=== PATIENT | male | born 1965 | race Caucasian/White ===

== ENCOUNTER 2018-05-16 08:10 | Inpatient (IN) ==
[2018-05-16 08:59] LABS: Basophils # (auto) 0.02 K/uL (0-0.2); Basophils % (auto) 0.2 %; Eosinophils # (auto) 0.07 K/uL (0-0.5); Eosinophils % (auto) 0.7 %; Hematocrit (blood only) 47.5 % (42-52); Hemoglobin 16.3 g/dL (14.0-18.0); Immature Granulocytes # (auto) 0.02 K/uL (0.00-0.02); Immature Granulocytes % (auto) 0.2 %; Lymphocytes # (auto) 1.51 K/uL (1.2-3.4); Mean Corpuscular Hgb Conc 34.3 g/dL (32-36); Mean Corpuscular Volume 84.7 fL (80-100); Mean Platelet Volume 10.6 fL (7.4-10.4); Monocytes # (auto) 0.48 K/uL (0.11-0.59); Monocytes % (auto) 5.1 %; Neutrophils # (auto) 7.32 K/uL (1.4-6.5); Neutrophils % (auto) 77.8 %; Platelet Count 217 K/uL (130-400); RDW Coefficient of Variation 12.8 % (11.5-14.5); RDW Standard Deviation 39.1 fL (36.4-46.3); Red Blood Count 5.61 M/uL (4.7-6.1); White Blood Count 9.42 K/uL (4.8-10.8)
[2018-05-16 09:00] LABS: Appearance Urine Clear (Clear); Bacteria Urine Automated Negative (Negative); Bilirubin Urine Negative (Negative); Color Urine Yellow; Glucose Urine UA 1+ (Negative); Ketones Urine 1+ (Negative); Leukocyte Esterase Urine Negative (Negative); Nitrite Urine Negative (Negative); Protein Urine Trace (Negative); Specific Gravity Urine 1.015 (1.000-1.030); Urobilinogen Urine Negative (Negative); pH Urine 5.5 (4.5-7.5)
--- NOTE | 2018-05-16 09:12 | Emergency Department Note ---
Entered by Constanza Sanabria acting as a scribe for Jakub Kaplan MD History of Present Illness General Chief complaint: Anxiety Stated complaint: ANXIETY Time Seen by Provider: 05/16/18 08:20 Source: patient History of Present Illness Provider complaint: mental health evalution Onset (ago): day(s) (today) Location: head Pain Consistency: + constant Maximum Pain Intensity: 0 Quality: + other (mental health evaluation) Associated symptoms: + denies other symptoms (denies abdominal pain); no chest pain and no shortness of breath The patient is a 53 year old male who presents to the Emergency Room with complaints of a mental health evaluation today. The patient reports a history of anxiety and states that he is on Paxil. He states that he was on 20 mg but started taking 40 mg on his own. He reports that he has been hospitalized 4 times for anxiety. He states that he also has chronic depression. The patient states that his anxiety has worsened over the last 2 weeks. The patient reports that he has not had energy and has had weight loss as he has a loss of appetite. The patient states that nothing in particular triggered his anxiety. 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 The patient states that he does not smoke and denies alcohol or drug use. He reports that he has thought about shooting himself and states that he has guns in his home as he hunts. He states that he has not tried to hurt himself and states that thinking about his family prevents him from hurting himself. The patient denies having thoughts of hurting other people. The patient reports having left back pain but denies having chest pain, shortness of breath, or abdominal pain. He states that he is diabetic and states that his sugar was 201 this morning. He states that he is on Metformin but states that he has not been taking it as he has not been eating. The patient also reports a history of hypertension and hyperlipidemia. Home Medications Home Medications Medication Instructions Recorded Confirmed Type aspirin [Aspirin Low Dose] 81 mg PO HS 05/16/18 05/16/18 History losartan-hydrochlorothiazide 0.5 tab PO HS 05/16/18 05/16/18 History metformin 500 mg PO BID 05/16/18 05/16/18 History paroxetine HCl 40 mg PO HS 05/16/18 05/16/18 History Allergies Allergy/AdvReac Type Severity Reaction Status Date / Time mildew Allergy Uncoded 05/16/18 14:23 Past Med/Surg History Medical History Anxiety (Chronic) Depression (Chronic) Diabetes (Chronic) HLD (hyperlipidemia) (Chronic) HTN (hypertension) (Chronic) Family History Other No pertinent family history Social History Feels Safe at Home: Yes Smoking Status: Never smoker Preferred Language: Latvian Communication Ability: Effective Suede Brusher Required: No Review of Systems See HPI for pertinent positives & negatives. and A total of 10 systems reviewed and were otherwise negative Physical Exam Vital Signs Vital Signs - 24 hr 05/16/18 08:12 05/16/18 10:10 05/16/18 11:26 Temperature 36.3 C L Temperature Source Oral Sepsis Recent Fever Within 48 Hours No Sepsis New/Unexplained Change in Mental Status No Sepsis Action Taken by Nursing No Action Required Pulse Rate 98 H 88 Pulse Rate [Radial] 90 Pulse Rhythm [Radial] Pulse Strength [Radial] Respiratory Rate 20 16 18 Respiratory Effort / Characteristics Non-Labored Spontaneous Respiratory Depth Normal Respiratory Pattern Regular Blood Pressure 165/110 H 148/87 H Blood Pressure [Left Arm] 155/98 H Blood Pressure Mean 128 Blood Pressure Mean [Left Arm] 117 Blood Pressure Position [Left Arm] Pulse Oximetry 97 98 98 Oxygen Delivery Method Room Air Room Air 05/16/18 12:56 05/16/18 13:14 Temperature 36.4 C L Temperature Source Oral Sepsis Recent Fever Within 48 Hours Sepsis New/Unexplained Change in Mental Status Sepsis Action Taken by Nursing Pulse Rate Pulse Rate [Radial] 99 H Pulse Rhythm [Radial] Regular Pulse Strength [Radial] Normal Respiratory Rate 18 Respiratory Effort / Characteristics Non-Labored Non-Labored Respiratory Depth Normal Normal Respiratory Pattern Regular Regular Blood Pressure Blood Pressure [Left Arm] 141/98 H Blood Pressure Mean Blood Pressure Mean [Left Arm] 112 Blood Pressure Position [Left Arm] Sitting Pulse Oximetry Oxygen Delivery Method General: Non-ill appearing middle aged male in no acute distress. HEENT: Normal cephalic atraumatic. Pupils are equal round and reactive to light. Extraocular movements are intact. Oropharynx is pink with moist mucous membranes. No swelling of the mouth lips or tongue. Neck: Supple with a midline trachea. No meningeal signs or stiffness, no JVD or bruits. No Stridor. Chest: Clear to auscultation bilaterally. No wheezes or rhonchi. No increased work of breathing. Heart: regular rate and rhythm. Abdomen: Soft nontender, nondistended without rebound guarding or rigidity. Extremities: No cyanosis clubbing or edema. No calf tenderness or assymetry Spine/Back. Non tender to palpation. No CVA tenderness Skin: Good turgor without rashes. Neurologic exam: Cranial nerves two through 12 are intact. Motor and sensation are intact and symmetrical throughout. Psych: Normal thought process. Has thoughts of hurting himself but denies any thoughts at present. Denies homicidal ideation. Course 0823: Past medical records reviewed. The patient was evaluated in room A5, and a complete history and physical examination were performed. 1045: The patient was admitted to [facility]. Administered Medications Insulin Aspart (Novolog Flexpen) 0 units SC [facility]; Protocol Stop: 06/15/18 11:29 Last Admin: 05/16/18 12:47 Dose: Not Given Admin: 05/16/18 12:46 Dose: Not Given Discontinued Medications Lorazepam (Ativan) 1 mg SL NOW STA Stop: 05/16/18 09:32 Last Admin: 05/16/18 09:40 Dose: 1 mg Metformin HCl (Glucophage) 500 mg PO ONE STA Stop: 05/16/18 10:55 Last Admin: 05/16/18 11:11 Dose: 500 mg Potassium Chloride (Klor-Con M20) 40 meq PO NOW STA Stop: 05/16/18 09:33 Last Admin: 05/16/18 09:40 Dose: 40 meq Medical Decision Making Differential Diagnosis The patient is a 53 year old male who presents to the ED with a mental health evaluation. Differential diagnosis includes depression, anxiety, SI, toxicologic , electrolyte or metabolic abnormality. Medical Records Attestation: I reviewed the patient's medical records. Home Medications Current Medication List: was personally reviewed by me Laboratory Data Attestation: I reviewed the patient's lab results. Result diagrams: 05/16/18 08:49 05/16/18 08:49 Lab Results 05/16/18 05/16/18 05/16/18 Range/Units 08:20 08:20 08:49 WBC 9.42 (4.8-10.8) K/uL RBC 5.61 (4.7-6.1) M/uL Hgb 16.3 (14.0-18.0) g/dL Hct 47.5 (42-52) % MCV 84.7 (80-100) fL MCH 29.1 (25-34) pg MCHC 34.3 (32-36) g/dL RDW Std Deviation 39.1 (36.4-46.3) fL RDW Coeff of Conchita 12.8 (11.5-14.5) % Plt Count 217 (130-400) K/uL MPV 10.6 H (7.4-10.4) fL Immature Gran % (Auto) 0.2 % Neut % (Auto) 77.8 % Lymph % (Auto) 16.0 % Edgar % (Auto) 5.1 % Eos % (Auto) 0.7 % Baso % (Auto) 0.2 % Immature Gran # (Auto) 0.02 (0.00-0.02) K/uL Neut # (Auto) 7.32 H (1.4-6.5) K/uL Lymph # (Auto) 1.51 (1.2-3.4) K/uL Edgar # (Auto) 0.48 (0.11-0.59) K/uL Eos # (Auto) 0.07 (0-0.5) K/uL Baso # (Auto) 0.02 (0-0.2) K/uL Sodium (136-145) mmol/L Potassium (3.5-5.1) mmol/L Chloride (98-107) mmol/L Carbon Dioxide (21-32) mmol/L Anion Gap (3-11) BUN (7-18) mg/dl Creatinine (0.6-1.4) mg/dl Est Cr Clr Drug Dosing ml/min Est GFR ( Amer) Est GFR (Non-Af Amer) BUN/Creatinine Ratio (10-20) Glucose (70-99) mg/dl POC Glucose (70-99) Calcium (8.5-10.1) mg/dl Total Bilirubin (0.2-1) mg/dl AST (15-37) U/L ALT (12-78) U/L Alkaline Phosphatase (45-117) U/L Total Protein (6.4-8.2) gm/dl Albumin (3.4-5.0) gm/dl Globulin (2.5-4.0) gm/dl Albumin/Globulin Ratio (0.9-2) TSH (0.300-4.500) uIu/ml Urine Color Yellow Urine Appearance Clear (Clear) Urine pH 5.5 (4.5-7.5) Ur Specific [place] 1.015 (1.000-1.030) Urine Protein Trace H (Negative) Urine Glucose (UA) 1+ H (Negative) Urine Ketones 1+ H (Negative) Urine Blood Negative (Negative) Urine Nitrite Negative (Negative) Urine Bilirubin Negative (Negative) Urine Urobilinogen Negative (Negative) Ur Leukocyte Esterase Negative (Negative) Urine WBC (Auto) 1-5 (0-5) /hpf Urine RBC (Auto) 0-4 (0-4) /hpf U Hyaline Cast (Auto) 5-10 H (0-5) /lpf U Epithel Cells (Auto) 5-10 H (0-5) /lpf Urine Bacteria (Auto) Negative (Negative) Salicylates (2.8-20) mg/dl Urine Opiates Screen Neg (Neg) Ur Methadone, Qual Neg (Neg) Acetaminophen (10-30) ug/ml Urine Barbiturates Neg (Neg) Ur Phencyclidine (PCP) Neg (Neg) U Amphetamin/Meth Scrn Neg (Neg) MDMA (Ecstasy) Screen Neg (Neg) U Benzodiazepines Scrn Neg (Neg) Ur Cocaine Metabolite Neg (Neg) U Marijuana (THC) Screen Neg (Neg) Ethyl Alcohol mg/dL (0-3) mg/dl 05/16/18 05/16/18 05/16/18 Range/Units 08:49 08:49 08:49 WBC (4.8-10.8) K/uL RBC (4.7-6.1) M/uL Hgb (14.0-18.0) g/dL Hct (42-52) % MCV (80-100) fL MCH (25-34) pg MCHC (32-36) g/dL RDW Std Deviation (36.4-46.3) fL RDW Coeff of Conchita (11.5-14.5) % Plt Count (130-400) K/uL MPV (7.4-10.4) fL Immature Gran % (Auto) % Neut % (Auto) % Lymph % (Auto) % Edgar % (Auto) % Eos % (Auto) % Baso % (Auto) % Immature Gran # (Auto) (0.00-0.02) K/uL Neut # (Auto) (1.4-6.5) K/uL Lymph # (Auto) (1.2-3.4) K/uL Edgar # (Auto) (0.11-0.59) K/uL Eos # (Auto) (0-0.5) K/uL Baso # (Auto) (0-0.2) K/uL Sodium 134 L (136-145) mmol/L Potassium 3.3 L (3.5-5.1) mmol/L Chloride 98 (98-107) mmol/L Carbon Dioxide 28 (21-32) mmol/L Anion Gap 8.0 (3-11) BUN 8 (7-18) mg/dl Creatinine 1.05 (0.6-1.4) mg/dl Est Cr Clr Drug Dosing 108.2 ml/min Est GFR ( Amer) 92.2 Est GFR (Non-Af Amer) 79.5 BUN/Creatinine Ratio 7.5 L (10-20) Glucose 226 H (70-99) mg/dl POC Glucose (70-99) Calcium 8.7 (8.5-10.1) mg/dl Total Bilirubin 0.7 (0.2-1) mg/dl AST 30 (15-37) U/L ALT 51 (12-78) U/L Alkaline Phosphatase 82 (45-117) U/L Total Protein 7.9 (6.4-8.2) gm/dl Albumin 3.6 (3.4-5.0) gm/dl Globulin 4.3 H (2.5-4.0) gm/dl Albumin/Globulin Ratio 0.8 L (0.9-2) TSH 0.920 (0.300-4.500) uIu/ml Urine Color Urine Appearance (Clear) Urine pH (4.5-7.5) Ur Specific [place] (1.000-1.030) Urine Protein (Negative) Urine Glucose (UA) (Negative) Urine Ketones (Negative) Urine Blood (Negative) Urine Nitrite (Negative) Urine Bilirubin (Negative) Urine Urobilinogen (Negative) Ur Leukocyte Esterase (Negative) Urine WBC (Auto) (0-5) /hpf Urine RBC (Auto) (0-4) /hpf U Hyaline Cast (Auto) (0-5) /lpf U Epithel Cells (Auto) (0-5) /lpf Urine Bacteria (Auto) (Negative) Salicylates < 1.7 L (2.8-20) mg/dl Urine Opiates Screen (Neg) Ur Methadone, Qual (Neg) Acetaminophen < 2 L (10-30) ug/ml Urine Barbiturates (Neg) Ur Phencyclidine (PCP) (Neg) U Amphetamin/Meth Scrn (Neg) MDMA (Ecstasy) Screen (Neg) U Benzodiazepines Scrn (Neg) Ur Cocaine Metabolite (Neg) U Marijuana (THC) Screen (Neg) Ethyl Alcohol mg/dL < 3.0 (0-3) mg/dl 05/16/18 Range/Units 14:49 WBC (4.8-10.8) K/uL RBC (4.7-6.1) M/uL Hgb (14.0-18.0) g/dL Hct (42-52) % MCV (80-100) fL MCH (25-34) pg MCHC (32-36) g/dL RDW Std Deviation (36.4-46.3) fL RDW Coeff of Conchita (11.5-14.5) % Plt Count (130-400) K/uL MPV (7.4-10.4) fL Immature Gran % (Auto) % Neut % (Auto) % Lymph % (Auto) % Edgar % (Auto) % Eos % (Auto) % Baso % (Auto) % Immature Gran # (Auto) (0.00-0.02) K/uL Neut # (Auto) (1.4-6.5) K/uL Lymph # (Auto) (1.2-3.4) K/uL Edgar # (Auto) (0.11-0.59) K/uL Eos # (Auto) (0-0.5) K/uL Baso # (Auto) (0-0.2) K/uL Sodium (136-145) mmol/L Potassium (3.5-5.1) mmol/L Chloride (98-107) mmol/L Carbon Dioxide (21-32) mmol/L Anion Gap (3-11) BUN (7-18) mg/dl Creatinine (0.6-1.4) mg/dl Est Cr Clr Drug Dosing ml/min Est GFR ( Amer) Est GFR (Non-Af Amer) BUN/Creatinine Ratio (10-20) Glucose (70-99) mg/dl POC Glucose 149 H (70-99) Calcium (8.5-10.1) mg/dl Total Bilirubin (0.2-1) mg/dl AST (15-37) U/L ALT (12-78) U/L Alkaline Phosphatase (45-117) U/L Total Protein (6.4-8.2) gm/dl Albumin (3.4-5.0) gm/dl Globulin (2.5-4.0) gm/dl Albumin/Globulin Ratio (0.9-2) TSH (0.300-4.500) uIu/ml Urine Color Urine Appearance (Clear) Urine pH (4.5-7.5) Ur Specific [place] (1.000-1.030) Urine Protein (Negative) Urine Glucose (UA) (Negative) Urine Ketones (Negative) Urine Blood (Negative) Urine Nitrite (Negative) Urine Bilirubin (Negative) Urine Urobilinogen (Negative) Ur Leukocyte Esterase (Negative) Urine WBC (Auto) (0-5) /hpf Urine RBC (Auto) (0-4) /hpf U Hyaline Cast (Auto) (0-5) /lpf U Epithel Cells (Auto) (0-5) /lpf Urine Bacteria (Auto) (Negative) Salicylates (2.8-20) mg/dl Urine Opiates Screen (Neg) Ur Methadone, Qual (Neg) Acetaminophen (10-30) ug/ml Urine Barbiturates (Neg) Ur Phencyclidine (PCP) (Neg) U Amphetamin/Meth Scrn (Neg) MDMA (Ecstasy) Screen (Neg) U Benzodiazepines Scrn (Neg) Ur Cocaine Metabolite (Neg) U Marijuana (THC) Screen (Neg) Ethyl Alcohol mg/dL (0-3) mg/dl Blood Pressure Blood Pressure Findings: Elevated blood pressure Blood Pressure Disposition: elevated BP felt to be situational MDM Narrative This patient comes in as described above. He was placed in room A5. History of anxiety and depression has had increasing symptoms over the last 2 weeks. He has had thoughts of hurting himself but has not tried this. Denies homicidal ideations. He is here with his who is very supportive. He has had inpatient treatment for times in the past. Blood work was obtained for medical clearance. He has no white count or fever to suggest infection. No significant electrolyte or metabolic abnormalities with exception of mildly low potassium of 3.3 this was repleted by 40 meq by mouth. The patient also had a mildly elevated blood sugar and has known diabetes but no evidence of DKA. He was feeling anxious and was given Ativan 1 mg sublingual. There is nothing to suggest acute toxicologic process. At this point he is medically cleared to be seen by psychiatry. He has been evaluated and will be admitted to [facility]. voluntarily for further inpatient treatment and evaluation. Impression & Plan Anxiety, Depression, Suicidal ideation Discharge Plan Visit Data *Final* Discharge Date/Time: 05/16/18 11:26 Chief Complaint: Anxiety Stated Complaint: ANXIETY ED Provider: Jakub Kaplan Discharge Problem: Anxiety, Depression, Suicidal ideation Patient Disposition: Admitted As Inpatient Discharge Instructions Interventions: ED Discharge Assessment Last Done: 05/16/18 11:26 The scribe's documentation has been prepared under my direction and personally reviewed by me in its entirety. I confirm that the note above accurately reflects all work, treatment, procedures, and medical decision making performed by me.
[2018-05-16 09:17] LABS: Albumin Level 3.6 gm/dl (3.4-5.0); BUN Creatinine Ratio 7.5 (10-20); Calcium 8.7 mg/dl (8.5-10.1); Creatinine Clr Calc Pharmacy 108.2 ml/min; Est GFR (African American) 92.2; Est GFR (Non-African American) 79.5; Potassium 3.3 mmol/L (3.5-5.1)
[2018-05-16 09:22] LABS: Amphetamines+Metham, Urine Neg (Neg); Barbiturates, Urine Neg (Neg); Benzodiazepine, Urine Neg (Neg); Cocaine, Urine Neg (Neg); MDMA (Ecstacy), Urine Neg (Neg); Methadone, Urine Neg (Neg); Opiate, Urine Neg (Neg); Phencyclidine, Urine Neg (Neg)
[2018-05-16 09:25] LABS: Acetaminophen < 2 ug/ml (10-30)
[2018-05-16 09:26] LABS: Salicylate < 1.7 mg/dl (2.8-20)
[2018-05-16 09:28] LABS: Albumin Globulin Ratio 0.8 (0.9-2); Bilirubin,Total 0.7 mg/dl (0.2-1); Globulin 4.3 gm/dl (2.5-4.0); Total Protein 7.9 gm/dl (6.4-8.2)
[2018-05-16] MEDS ORDERED: LORazepam 1 MG TAB SL STA (09:31)
[2018-05-16] MEDS ORDERED: POTASSIUM CHLORIDE 20 MEQ TABCR PO STA (09:32)
[2018-05-16] MEDS ORDERED: BISMUTH SUBSALICYLATE PER ML OMNICELL CHARGE PO PRN (10:26)
[2018-05-16] MEDS ORDERED: ACETAMINOPHEN 325 MG TAB PO PRN (10:26)
[2018-05-16] MEDS ORDERED: SODIUM CHLORIDE 0.65% NA SOLN 45 ML (OCEAN) PRN (10:26)
[2018-05-16] MEDS ORDERED: MAGNESIUM HYDROXIDE SUSP 30 ML UDC PO PRN (10:26)
[2018-05-16] MEDS ORDERED: ALUMINUM/MAGNESIUM SUSP 30 ML UDC PO PRN (10:26)
[2018-05-16] MEDS ORDERED: ASPIRIN 81 MG ECTAB PO SCH (10:30)
[2018-05-16] MEDS ORDERED: LOSARTAN/HCTZ 50/12.5MG TAB PO SCH (10:30)
[2018-05-16] MEDS ORDERED: PHARMACY GLYCEMIC MGMT CONSULT SCH (10:31)
[2018-05-16] MEDS ORDERED: CARBOHYDRATES FOR HYPOGLYCEMIA PO PRN (10:37)
[2018-05-16] MEDS ORDERED: GLUCOSE 10 TABS/TUBE PO PRN (10:37)
[2018-05-16] MEDS ORDERED: GLUCAGON FOR INJ 1 MG VIAL IM PRN (10:37)
[2018-05-16] MEDS ORDERED: GLUCOSE 40% GEL 15 GM TUBE PO PRN (10:37)
[2018-05-16] MEDS ORDERED: DEXTROSE 50% 50 ML SYRINGE IV PRN (10:37)
--- NOTE | 2018-05-16 10:37 | History & Physical ---
Date of Service May 16, 2018 Impression / Recommendations Impression 53-year-old white male from [place] who has a history of depression and is admitted with worsening mood and suicidal thoughts. He has thoughts of shooting himself and has access to guns, and this will need to be addressed in his family meeting. He is currently following with his PCP, but would benefit from outpatient mental health treatment with a therapist and possibly psychiatrist. One of his goals is to avoid the need for hospitalization in the future, so discussed preventative strategies for managing chronic depression, including good nutrition, adequate sleep, exercise , daily structure, engaging in activities he enjoys, treating his comorbid medical conditions, compliance with medications, therapy, and possibly interventions in the fall to target mood prior to the winter, when his depression tends to be worse. He already increased his paroxetine dose about 5 days ago to 40 mg, which is appropriate and will be continued. Inpatient treatment is medically necessary due to the severity of his symptoms and risk for suicide if discharged prematurely. (1) Suicidal ideation: 05/16 -admitted to the behavioral health unit voluntarily. Suicide checks for safety. Involve the patient in groups and therapy, work on healthy coping skills and discharge safety plan. -Family meeting with , review plan to secure firearms. Present on Admission?: Yes (2) Depression: 05/16 -Continue paroxetine 40 mg daily, which was just increased 5 days ago. -Refer for outpatient therapy and psychiatry. -Reviewed ways to mitigate mood, including good nutrition, adequate sleep, exercise, daily structure, engaging in activities he enjoys, treating his comorbid medical conditions, compliance with medications, therapy, and possibly interventions in the fall to target mood prior to the winter, when his depression tends to be worse. Active/Remission status: Depression Type: unspecified Major depression episode severity: Major depression recurrence: Psychotic features : Trimester: Qualified Code(s): F32.9 - Major depressive disorder, single episode, unspecified Present on Admission?: Yes (3) HTN (hypertension): 05/16 - resume home antihypertensives, which patient states he has been poorly compliant with. Monitor blood pressure. Present on Admission?: Yes (4) Diabetes mellitus type 2 in obese: 05/16 -patient prescribed metformin 500 mg twice daily, but reported to ER staff that he was taking it only once a day. Will continue as ordered by his outpatient physician, and consult the diabetic pharmacist for glucose control while inpatient. He will need follow-up with his PCP, Dr. Doan, after discharge. Present on Admission?: Yes Inventory Assets Strengths: Supportive , good relationship with family. Needs: Outpatient mental health care, improve medication compliance Risk Factors Assessment Male: Yes : Yes Do You Have Access To A Gun?: Yes Health Problems: Yes Mental Health Diagnoses: Yes Substance Use Disorders: No Previous Attempt: No Previous Psychiatric Hospitalization: Yes Smoker: No Protective Factors Assessment : Yes Responsible for Young Children: No Employed: Yes ([employer], currently laid off and picking up side work) Stable Relationships: Yes Supportive Family: Yes Psychiatric History Identifying Data RD GIANG is a 53-year-old M who currently lives in [place] with his , has a history of depression and anxiety managed by his PCP, and was admitted on on a 201 voluntary commitment for worsening mood, anxiety, and suicidal thoughts with a plan to shoot himself. Chief Complaint "I've been battling the anxiety for about two weeks, just getting worse". History of Present Illness Patient reports a long history of depression and anxiety with 4 previous inpatient psychiatric hospitalizations, but currently receives medications from his PCP and has no outpatient mental health care. He reports worsening mood and anxiety symptoms for the past 2 weeks, with suicidal thoughts to shoot himself, and has access to guns. His accompanied him to the ER, and they report a good relationship. The patient endorsed depressed mood, poor motivation, decreased appetite, weight loss, sleep disruption, and difficulty functioning on a daily basis. He reported severe anxiety with restlessness, irritability, and sleep interference. He reported drinking a lot of soda when he feels anxious, which then causes him to urinate frequently and feel dehydrated. He increased his paroxetine dose from 20mg to 40mg daily about 5 days ago, as he has been on that dose in the past. 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 On my assessment, he reports worsening anxiety x 2 weeks, which he describes as "no motivation, don't want to do anything, just sit and drink soda." He reports feeling "somewhat " on edge/nervous, and mood is predominantly depressed. He endorses poor energy, decreased sleep, amotivation, hasn't showered for days, decreased appetite with slight weight loss, and SI that "comes and goes." He has thoughts "to take a gun, put it to my head," and has access to guns. He doesn't want to hurt himself and says he wants to get help. Denies crying spells , guilt, and anhedonia. He denies stressors, "I don't have much to worry about. " He enjoys spending time with his grandchildren. For the past week he has been spending all day "just sitting in the chair watching TV," and says his was worried about him. Although he repeatedly referred to "anxiety," when discussing the difference between depression and anxiety, he says it is more depression. 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 Denies symptoms of panic, john, and psychosis. Past Psychiatric History Previous Psych History: Depression and anxiety for many years. Current Psychiatric Diagnosis: [facility] Outpatient Services: No therapist, psychiatrist, or case specialist currently. PCP , Dr. Doan, manages medications. Previous Psych Admissions: [facility] (2002 and 1993) and [facility] (1997 and 2015) -all during winter months Do You Have Access To A Gun?: Yes History of Previous Suicide Attempt: No Past Medication Trials: Paxil - since 1993 Allergies Allergy/AdvReac Type Severity Reaction Status Date / Time No Known Allergies Allergy Verified 05/16/18 08:35 Home Medications Home Medications Medication Instructions Recorded Confirmed Type aspirin [Aspirin Low Dose] 81 mg PO HS 05/16/18 05/16/18 History losartan-hydrochlorothiazide 0.5 tab PO HS 05/16/18 05/16/18 History metformin 500 mg PO BID 05/16/18 05/16/18 History paroxetine HCl 40 mg PO HS 05/16/18 05/16/18 History Family History Family History of: Depression (Father) Alcohol History Hx of Alcohol Use Over the Past 12 Months: No Smoking Use Smoking Status: Never smoker Substance History Hx of Prescription Med Misuse Over the Past 12 Months: No Hx of Over the Counter Med Misuse Over the Past 12 Months: No Hx of Inhalent Misuse Over the Past 12 Months: No Hx of Organic Substance Use Over the Past 12 Months: No Hx of Illegal Substances/Street Drug Use Over Past 12 Months: No Problems as a Result of Past Substance Use: None Identified Personal History Living Arrangements: Home Living Arrangements Comments: With in [place]. Born In: born and raised in [place] Childhood: Describes childhood as "rough," as parents split up when he was around 5 years old, and he "felt like pawn." He was an only child, and lived with mother for a while, then father for a while, then grandparents. Has a good relationship with father now. 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 Current Legal Problems: No Hx Traumatic Life Events: No Patient History Medical History Anxiety (Chronic) Depression (Chronic) Diabetes (Chronic) HLD (hyperlipidemia) (Chronic) HTN (hypertension) (Chronic) Family History Other No pertinent family history Social History Feels Safe at Home: Yes Smoking Status: Never smoker Preferred Language: Maltese Review of Systems All systems reviewed & are unremarkable except as noted in HPI & below Physical Exam Psychiatric Orientation: alert, oriented x 3 and cooperative Apperance: appropriately dressed and appeared stated age Obese, unshaven Eye Contact: good eye contact Motor Behavior: steady gait and station and no abnormal motor movements Speech: normal rate/rhythm/volume of speech Affect: + depressed affect, + constricted affect and mood congruent with affect Mood: + depressed mood and + anxious mood Thought Process: goal directed thought process Thought Content: reality based without delusions Suicidal Thoughts: + reports suicidal thoughts Homicidal Thoughts: denies homicidal thoughts Hallucinations: no auditory hallucinations and no visual hallucinations Cognition: recent memory grossly intact, remote memory grossly intact, attention grossly intact and language grossly intact Estimated Intelligence: average estimated intelligence Insight: + fair insight Judgement: + fair judgement Vital Signs (Past 24 Hours) Last Vital Signs Temp 36.3 C L 05/16/18 08:12 Pulse 90 01/06/19 10:10 Resp 16 05/16/18 10:10 BP 155/98 H 05/16/18 10:10 Pulse Ox 98 05/16/18 10:10 A physical exam was performed in the ER prior to admission to the unit by Dr. Kaplan. I accept that physical as correct/medical clearance for the inpatient physical exam. Results & Data Laboratory Results Laboratory Results - last 24 hr 05/16/18 05/16/18 05/16/18 08:20 08:20 08:49 WBC 9.42 RBC 5.61 Hgb 16.3 Hct 47.5 MCV 84.7 MCH 29.1 MCHC 34.3 RDW Std Deviation 39.1 RDW Coeff of Conchita 12.8 Plt Count 217 MPV 10.6 H Immature Gran % (Auto) 0.2 Neut % (Auto) 77.8 Lymph % (Auto) 16.0 Nash % (Auto) 5.1 Eos % (Auto) 0.7 Baso % (Auto) 0.2 Immature Gran # (Auto) 0.02 Neut # (Auto) 7.32 H Lymph # (Auto) 1.51 Nash # (Auto) 0.48 Eos # (Auto) 0.07 Baso # (Auto) 0.02 Sodium Potassium Chloride Carbon Dioxide Anion Gap BUN Creatinine Est Cr Clr Drug Dosing Est GFR ( Amer) Est GFR (Non-Af Amer) BUN/Creatinine Ratio Glucose Calcium Total Bilirubin AST ALT Alkaline Phosphatase Total Protein Albumin Globulin Albumin/Globulin Ratio TSH Urine Color Yellow Urine Appearance Clear Urine pH 5.5 Ur Specific [place] 1.015 Urine Protein Trace H Urine Glucose (UA) 1+ H Urine Ketones 1+ H Urine Blood Negative Urine Nitrite Negative Urine Bilirubin Negative Urine Urobilinogen Negative Ur Leukocyte Esterase Negative Urine WBC (Auto) 1-5 Urine RBC (Auto) 0-4 U Hyaline Cast (Auto) 5-10 H U Epithel Cells (Auto) 5-10 H Urine Bacteria (Auto) Negative Salicylates Urine Opiates Screen Neg Ur Methadone, Qual Neg Acetaminophen Urine Barbiturates Neg Ur Phencyclidine (PCP) Neg U Amphetamin/Meth Scrn Neg MDMA (Ecstasy) Screen Neg U Benzodiazepines Scrn Neg Ur Cocaine Metabolite Neg U Marijuana (THC) Screen Neg Ethyl Alcohol mg/dL 05/16/18 05/16/18 05/16/18 08:49 08:49 08:49 WBC RBC Hgb Hct MCV MCH MCHC RDW Std Deviation RDW Coeff of Conchita Plt Count MPV Immature Gran % (Auto) Neut % (Auto) Lymph % (Auto) Nash % (Auto) Eos % (Auto) Baso % (Auto) Immature Gran # (Auto) Neut # (Auto) Lymph # (Auto) Nash # (Auto) Eos # (Auto) Baso # (Auto) Sodium 134 L Potassium 3.3 L Chloride 98 Carbon Dioxide 28 Anion Gap 8.0 BUN 8 Creatinine 1.05 Est Cr Clr Drug Dosing 108.2 Est GFR ( Amer) 92.2 Est GFR (Non-Af Amer) 79.5 BUN/Creatinine Ratio 7.5 L Glucose 226 H Calcium 8.7 Total Bilirubin 0.7 AST 30 ALT 51 Alkaline Phosphatase 82 Total Protein 7.9 Albumin 3.6 Globulin 4.3 H Albumin/Globulin Ratio 0.8 L TSH 0.920 Urine Color Urine Appearance Urine pH Ur Specific [place] Urine Protein Urine Glucose (UA) Urine Ketones Urine Blood Urine Nitrite Urine Bilirubin Urine Urobilinogen Ur Leukocyte Esterase Urine WBC (Auto) Urine RBC (Auto) U Hyaline Cast (Auto) U Epithel Cells (Auto) Urine Bacteria (Auto) Salicylates < 1.7 L Urine Opiates Screen Ur Methadone, Qual Acetaminophen < 2 L Urine Barbiturates Ur Phencyclidine (PCP) U Amphetamin/Meth Scrn MDMA (Ecstasy) Screen U Benzodiazepines Scrn Ur Cocaine Metabolite U Marijuana (THC) Screen Ethyl Alcohol mg/dL < 3.0 Current Inpatient Medications Current Inpatient Medications: Current Inpatient Medications Acetaminophen (Tylenol) 650 mg PO Q4H PRN PRN Reason: Headache or Minor Fever Stop: 06/15/18 10:25 Al Hydrox/Mg Hydrox/Simethicone (Maalox) 30 ml PO Q4H PRN PRN Reason: GI Upset Stop: 06/15/18 10:25 Aspirin (Ecotrin Ectab) 81 mg PO DAILY RUTHIE Stop: 06/15/18 10:29 Bismuth Subsalicylate (Kaopectate) 15 ml PO PRN PRN PRN Reason: Loose Stool Stop: 06/15/18 10:25 HCTZ/Losartan Potassium (Hyzaar 50/12.5mg) 1 tab PO DAILY RUTHIE Stop: 06/15/18 10:29 Hydroxyzine HCl (Vistaril) 25 mg PO Q4H PRN PRN Reason: Anxiety Stop: 06/15/18 10:25 Hydroxyzine HCl (Vistaril) 50 mg PO HSZ PRN PRN Reason: Insomnia Stop: 06/15/18 10:25 Magnesium Hydroxide (Milk Of Magnesia) 30 ml PO DAILY PRN PRN Reason: Heartburn Stop: 06/15/18 10:25 Metformin HCl (Glucophage) 500 mg PO BID RUTHIE Stop: 06/15/18 10:29 Miscellaneous Information (Consult Glycemic Management Pharmacy) 1 ea N/A UD RUTHIE Stop: 06/15/18 10:30 Sodium Chloride (Park Nasal) 1 - 2 sprays NA PRN PRN PRN Reason: Nasal Dryness/Congestion Stop: 06/15/18 10:25 CPT Code CPT Code Initial Hospital Care: [id number]
--- NOTE | 2018-05-16 10:41 | Pharmacy Report ---
Glycemic Control Consultation - Date of Service May 16, 2018 - Scope Scope: Glycemic Pharmacist consulted by Dr Pisano on 05/16/18 for glycemic control and to write orders per [facility] inpatient glycemic control protocol - Objective Weight: 127.7 kg Accuchecks BSG (last 24hrs): 05/16/18 08:49 Glucose 226 H Laboratory Data (last 24hrs): 05/16/18 08:49 Potassium 3.3 L Carbon Dioxide 28 Anion Gap 8.0 Creatinine 1.05 Est Cr Clr Drug Dosing 108.2 - Recent Pertinent Medications Outpatient Anti-diabetic Regimen: * Metformin 500mg PO BID - pt reports not taking as prescribed d/t not eating from depression * A1c = 6.6 % 08/16/12 - updated A1c ordered with AM labs 05/17/18 - Assessment & Plan Assessment & Plan: ASSESSMENT: * 53 year old male self-referred to [facility] for major depressive episode. * Type 2 diabetic, unknown control, on metformin as outpatient, but reports not taking as prescribed as he has not been eating d/t his depression * Will continue metformin as inpatient at this time, as patient is not expected to have any procedures, and metformin does not cause hypoglycemia. * Patient currently hyperglycemic, will begin with weight based CF and CR, no basal at this time until we see how patient responds to insulin. PLAN FOR INPATIENT GLYCEMIC CONTROL: * Metformin 500mg PO BID with meals * Bolus insulin * NovoLog per scale ACHS or Q6hrs while NPO * Goal Range: Low 110 mg/dL - High 140 mg/dL * Correction Factor: 35 mg/dL/unit * Nutritional / Prandial insulin per carb ratio of 1 unit per 12 grams CHO consumed * Please note that the plan above was derived based on current level of insulin resistance and hospital stress. These recommendations are appropriate for inpatient admission only. Plan of care upon discharge will need to be reassessed to avoid potential outpatient hypo/hyperglycemia. Thank you.
[2018-05-16] MEDS ORDERED: PAROXETINE HCL 40 MG PO SCH (10:45)
[2018-05-16] MEDS ORDERED: METFORMIN HCL 500 MG TAB PO STA (10:54)
[2018-05-16] MEDS: INSULIN ASPART 100 UNITS/ML 3 ML PEN SC SCH ×4 (12:46→21:23)
[2018-05-16] MEDS: METFORMIN HCL 500 MG TAB PO SCH (17:33)
[2018-05-17 06:38] LABS: Estimated Average Glucose 203 mg/dl
[2018-05-17] MEDS ORDERED: LOSARTAN/HCTZ 50/12.5MG TAB PO STA (07:47)
[2018-05-17] MEDS: METFORMIN HCL 500 MG TAB PO SCH ×2 (08:45→17:19)
[2018-05-17] MEDS: ASPIRIN 81 MG ECTAB PO SCH (08:47)
[2018-05-17] MEDS: PARoxetine HCl 20 MG TAB PO SCH (08:47)
[2018-05-17] MEDS: INSULIN ASPART 100 UNITS/ML 3 ML PEN SC SCH ×2 (08:51→12:46)
[2018-05-17] MEDS ORDERED: METFORMIN HCL 500 MG TAB PO SCH (09:00)
--- NOTE | 2018-05-17 09:37 | Psychiatric Progress Note ---
Date of Service May 17, 2018 Impression / Recommendations Impression 53-year-old white male from [place] who has a history of depression managed by his PCP and is admitted with worsening mood and suicidal thoughts to shoot himself. He has a history of 4 previous inpatient psychiatric hospitalizations, all of which occurred in the winter. He typically does not work in the winter, which may also contribute to worsening of mood during that timeframe. His paroxetine was just increased to 40 mg a few days prior to admission, and that dose was continued here. He had a family meeting with his today, and she will secure firearms prior to discharge. He is currently following with his PCP, but would benefit from outpatient mental health treatment with a therapist and possibly psychiatrist. Inpatient treatment is medically necessary due to the severity of his symptoms and risk for suicide if discharged prematurely. (1) Suicidal ideation: 05/16 -admitted to the behavioral health unit voluntarily. Suicide checks for safety. Involve the patient in groups and therapy, work on healthy coping skills and discharge safety plan. -Family meeting with , review plan to secure firearms. 05/17 - confirmed that firearms are removed from the home so the patient will not have access to them until he stabilizes. Discussed the concept of an ongoing safety plan where family would intervene and secure firearms if and when the patient experiences worsening depression or suicidal thoughts in the future, as he does have a history of multiple episodes of severe depression and suicidality. (2) Depression: 05/16 -Continue paroxetine 40 mg daily, which was just increased 5 days ago. -Refer for outpatient therapy and psychiatry. -Reviewed ways to mitigate mood, including good nutrition, adequate sleep, exercise, daily structure, engaging in activities he enjoys, treating his comorbid medical conditions, compliance with medications, therapy, and possibly interventions in the fall to target mood prior to the winter, when his depression tends to be worse. 05/17 -Continue paroxetine, therapy and groups here, and refer for outpatient treatment. (3) HTN (hypertension): 05/16 - resume home antihypertensives, which patient states he has been poorly compliant with. Monitor blood pressure. (4) Diabetes mellitus type 2 in obese: 05/16 -patient prescribed metformin 500 mg twice daily, but reported to ER staff that he was taking it only once a day. Will continue as ordered by his outpatient physician, and consult the diabetic pharmacist for glucose control while inpatient. He will need follow-up with his PCP, Dr. Doan, after discharge. 05/17 -appreciate the assistance of the diabetic pharmacist. clinical staff educator will see patient while he is here as well, as he has not been following his diabetic diet and hemoglobin A1c is elevated (8.7 on 05/16/2018, with an estimated average glucose of 203). Inventory Assets Strengths: Supportive , good relationship with family. 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 Chief Complaint "Woke up a little anxious". Review of Systems Sleep Information Total Hours of Sleep: 7.25 Sleep Comments: loud obstructed snoring when laying on his back and quieter when laying on his side. Meal Information Percent Meal Consumed - Breakfast: 30 Percent Meal Consumed - Lunch: 100 Percent Meal Consumed - Dinner: 100 Subjective Subjective Patient was seen & assessed and interval progress reviewed with Treatment Team. Staff report the patient has been attending and participating in groups, reporting improved mood, and had a family meeting with his and adult son this morning. They discussed the events that led to his hospitalization, noted he had been isolating at home, not engaging in activities, watching excessive TV , and was more restless and fidgety. The family agreed that his symptoms typically worsen in the winter months. Seasonal affective disorder was discussed, including ways to combat depression with behavioral and cognitive changes. Patient had limited ideas for improving self-care and coping.the recommendations for outpatient therapy and psychiatric care were discussed, which the patient agreed to think about, but was not sure he needed. His and son confirmed that the guns had been secured. On my assessment, the patient states he "woke up anxious," although denies worry, nervousness, feeling on edge, and has difficulty describing this further, other than low mood. Mood tends to improve as the day progresses. He had suicidal thoughts this morning, worried "I would do something stupid, my family would miss me." He does not want to end his life, due to the effect it would have on his family , and finds the thoughts of ending his life very disturbing. He continues to state he is not sure he needs therapy, and again reviewed the potential benefits of therapy and encouraged him to consider this modality of treatment. Physical Exam Psychiatric Orientation: alert, oriented x 3 and cooperative Apperance: appropriately dressed and + disheveled Unshaven, obese Eye Contact: good eye contact Motor Behavior: steady gait and station and no abnormal motor movements Speech: normal rate/rhythm/volume of speech Affect: + depressed affect (But reactive, smiles appropriately at times.) Mood: + depressed mood and + anxious mood Thought Process: goal directed thought process Thought Content: reality based without delusions Suicidal Thoughts: + reports suicidal thoughts Homicidal Thoughts: denies homicidal thoughts Hallucinations: no auditory hallucinations Cognition: recent memory grossly intact, attention grossly intact and language grossly intact Estimated Intelligence: average estimated intelligence Insight: + fair insight Judgement: + fair judgement Vital Signs (Past 24 Hours) Last Vital Signs Temp 36.3 C L 05/17/18 06:56 Pulse 111 H 05/17/18 06:58 Resp 18 05/17/18 06:56 BP 171/124 H 05/17/18 06:58 Pulse Ox 98 05/16/18 11:26 Results & Data Laboratory Results Laboratory Results - last 24 hr 05/16/18 05/16/18 05/16/18 08:49 14:49 17:06 POC Glucose 149 H 177 H Estimat Average Glucose 203 Hemoglobin A1c 8.7 H 05/16/18 05/17/18 20:57 07:31 POC Glucose 185 H 161 H Estimat Average Glucose Hemoglobin A1c Current Inpatient Medications Current Inpatient Medications: Current Inpatient Medications Acetaminophen (Tylenol) 650 mg PO Q4H PRN PRN Reason: Headache or Minor Fever Stop: 06/15/18 10:25 Al Hydrox/Mg Hydrox/Simethicone (Maalox) 30 ml PO Q4H PRN PRN Reason: GI Upset Stop: 06/15/18 10:25 Aspirin (Ecotrin Ectab) 81 mg PO QAM [facility] Stop: 06/16/18 08:59 Last Admin: 05/17/18 08:47 Dose: 81 mg Bismuth Subsalicylate (Kaopectate) 15 ml PO PRN PRN PRN Reason: Loose Stool Stop: 06/15/18 10:25 Dextrose (Dextrose 50%) 25 - 50 ml IV UD PRN; Protocol PRN Reason: Hypoglycemia Protocol Stop: 06/15/18 10:36 Glucagon (Glucagen) 1 mg IM UD PRN; Protocol PRN Reason: Hypoglycemia Protocol Stop: 06/15/18 10:36 Glucose (Glucose 40%) 15 - 30 gm PO UD PRN; Protocol PRN Reason: Hypoglycemia Protocol Stop: 06/15/18 10:36 Glucose (Dex4 Glucose) 4 - 8 tabs PO UD PRN; Protocol PRN Reason: Hypoglycemia Protocol Stop: 06/15/18 10:36 HCTZ/Losartan Potassium (Hyzaar 50/12.5mg) 0.5 tab PO HS [facility] Stop: 06/16/18 21:59 Hydroxyzine HCl (Vistaril) 25 mg PO Q4H PRN PRN Reason: Anxiety Stop: 06/15/18 10:25 Hydroxyzine HCl (Vistaril) 50 mg PO HSZ PRN PRN Reason: Insomnia Stop: 06/15/18 10:25 Insulin Aspart (Novolog Flexpen) 0 units [facility]; Protocol Stop: 06/15/18 11:29 Last Admin: 05/17/18 08:51 Dose: Not Given Magnesium Hydroxide (Milk Of Magnesia) 30 ml PO DAILY PRN PRN Reason: Heartburn Stop: 06/15/18 10:25 Metformin HCl (Glucophage) 500 mg PO BIDM [facility] Stop: 06/15/18 17:44 Last Admin: 05/17/18 08:45 Dose: 500 mg Miscellaneous (Carbohydrates For Hypoglycemia) 15 - 30 gm PO UD PRN PRN Reason: Hypoglycemia Treatment Stop: 06/15/18 10:36 Miscellaneous Information (Consult Glycemic Management Pharmacy) 1 ea N/A UD [facility] Stop: 06/15/18 10:30 Paroxetine [facility]il) [facility] Stop: 06/16/18 08:59 Last Admin: 05/17/18 08:47 Dose: 40 mg Sodium Chloride ([place] Nasal) 1 - 2 sprays NA PRN PRN PRN Reason: Nasal Dryness/Congestion Stop: 06/15/18 10:25 Post Discharge Appointments Primary Care Physician Name Of Family Doctor: Andreina Ramirez Therapist Name of Therapist: n/a Social Service Assistant Name of Social Service Assistant: n/a CPT Code CPT Code 77382 _ (1) Depression Active/Remission status: Depression Type: unspecified Major depression episode severity: Major depression recurrence: Psychotic features: Trimester: Qualified Code(s): F32.9 - Major depressive disorder, single episode, unspecified
--- NOTE | 2018-05-17 13:31 | Pharmacy Report ---
Pharmacy Glycemic Short Note 2 - Date of Service May 17, 2018 - Glycemic Short BSG Results (Last 24 hours): 05/16/18 05/16/18 05/16/18 14:49 17:06 20:57 POC Glucose 149 H 177 H 185 H 05/17/18 05/17/18 07:31 12:09 POC Glucose 161 H 153 H ASSESSMENT: * Mr. Bustillos's BSGs over the previous 24hrs have been reasonably controlled. I did speak with him myself re: his refused insulin doses. He states that he "hates needles". I educated him on the efficacy of insulin. He still said he would refuse insulin. * Given the state of his A1C (8.7%), initiating dual therapy is reasonable. I presented the idea of a sulfonylurea or DPP4. He tried Glyburide in the past and failed it. * We will start with Januvia 50mg daily concurrently with his Metformin * BID glucose checks * Will d/c standing novolog PLAN FOR INPATIENT GLYCEMIC CONTROL: * See above PLAN FOR DISCHARGE: * to be determined closer to d/c * Potentially titrate his metformin?
[2018-05-17] MEDS: SITAGLIPTIN PHOSPHATE 25 MG TAB PO SCH (14:08)
[2018-05-17] MEDS ORDERED: LOSARTAN/HCTZ 50/12.5MG TAB PO SCH (22:00)
--- NOTE | 2018-05-18 08:12 | Psychiatric Progress Note ---
Date of Service May 18, 2018 Impression / Recommendations Impression 53-year-old white male from [place] who has a history of depression managed by his PCP and is admitted with worsening mood and suicidal thoughts to shoot himself. He has a history of 4 previous inpatient psychiatric hospitalizations, all of which occurred in the winter. He typically does not work in the winter, which may also contribute to worsening of mood during that timeframe. His paroxetine was just increased to 40 mg a few days prior to admission, and that dose was continued here. He had a family meeting with his today, and she will secure firearms prior to discharge. He is currently following with his PCP, but would benefit from outpatient mental health treatment with a therapist and possibly psychiatrist. Inpatient treatment is medically necessary due to the severity of his symptoms and risk for suicide if discharged prematurely. (1) Suicidal ideation: 05/16 -admitted to the behavioral health unit voluntarily. Suicide checks for safety. Involve the patient in groups and therapy, work on healthy coping skills and discharge safety plan. -Family meeting with , review plan to secure firearms. 05/17 - confirmed that firearms are removed from the home so the patient will not have access to them until he stabilizes. Discussed the concept of an ongoing safety plan where family would intervene and secure firearms if and when the patient experiences worsening depression or suicidal thoughts in the future, as he does have a history of multiple episodes of severe depression and suicidality. (2) Depression: 05/16 -Continue paroxetine 40 mg daily, which was just increased 5 days ago. -Refer for outpatient therapy and psychiatry. -Reviewed ways to mitigate mood, including good nutrition, adequate sleep, exercise, daily structure, engaging in activities he enjoys, treating his comorbid medical conditions, compliance with medications, therapy, and possibly interventions in the fall to target mood prior to the winter, when his depression tends to be worse. 05/17 -Continue paroxetine, therapy and groups here, and refer for outpatient treatment. (3) HTN (hypertension): 05/16 - resume home antihypertensives, which patient states he has been poorly compliant with. Monitor blood pressure. (4) Diabetes mellitus type 2 in obese: 05/16 -patient prescribed metformin 500 mg twice daily, but reported to ER staff that he was taking it only once a day. Will continue as ordered by his outpatient physician, and consult the diabetic pharmacist for glucose control while inpatient. He will need follow-up with his PCP, Dr. Doan, after discharge. 05/17 -appreciate the assistance of the diabetic pharmacist. family life educator will see patient while he is here as well, as he has not been following his diabetic diet and hemoglobin A1c is elevated (8.7 on 05/16/2018, with an estimated average glucose of 203). Inventory Assets Strengths: Supportive , good relationship with family. 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 Chief Complaint "[]". Review of Systems Sleep Information Total Hours of Sleep: 6 Sleep Comments: pt on q-15 minute checks Meal Information Percent Meal Consumed - Breakfast: 30 Percent Meal Consumed - Lunch: 95 Percent Meal Consumed - Dinner: 90 Subjective Subjective Patient was seen & assessed and interval progress reviewed with [Treatment Team ] [Nursing] Physical Exam Vital Signs (Past 24 Hours) Last Vital Signs Temp 36.7 C 05/18/18 06:57 Pulse 94 H 05/18/18 06:57 Resp 16 05/18/18 06:57 BP 156/96 H 05/18/18 06:57 Pulse Ox 98 05/16/18 11:26 Results & Data Laboratory Results Laboratory Results - last 24 hr 05/17/18 05/17/18 05/17/18 07:31 12:09 16:55 POC Glucose 161 H 153 H 178 H Current Inpatient Medications Current Inpatient Medications: Current Inpatient Medications Acetaminophen (Tylenol) 650 mg PO Q4H PRN PRN Reason: Headache or Minor Fever Stop: 06/15/18 10:25 Al Hydrox/Mg Hydrox/Simethicone (Maalox) 30 ml PO Q4H PRN PRN Reason: GI Upset Stop: 06/15/18 10:25 Aspirin (Ecotrin Ectab) 81 mg PO QAM [facility] Stop: 06/16/18 08:59 Last Admin: 05/17/18 08:47 Dose: 81 mg Bismuth Subsalicylate (Kaopectate) 15 ml PO PRN PRN PRN Reason: Loose Stool Stop: 06/15/18 10:25 Dextrose (Dextrose 50%) 25 - 50 ml IV UD PRN; Protocol PRN Reason: Hypoglycemia Protocol Stop: 06/15/18 10:36 Glucagon (Glucagen) 1 mg IM UD PRN; Protocol PRN Reason: Hypoglycemia Protocol Stop: 06/15/18 10:36 Glucose (Glucose 40%) 15 - 30 gm PO UD PRN; Protocol PRN Reason: Hypoglycemia Protocol Stop: 06/15/18 10:36 Glucose (Dex4 Glucose) 4 - 8 tabs PO UD PRN; Protocol PRN Reason: Hypoglycemia Protocol Stop: 06/15/18 10:36 HCTZ/Losartan Potassium (Hyzaar 50/12.5mg) 0.5 tab PO HS [facility] Stop: 06/16/18 21:59 Last Admin: 05/17/18 21:06 Dose: 0.5 tab Hydroxyzine HCl (Vistaril) 25 mg PO Q4H PRN PRN Reason: Anxiety Stop: 06/15/18 10:25 Hydroxyzine HCl (Vistaril) 50 mg PO HSZ PRN PRN Reason: Insomnia Stop: 06/15/18 10:25 Magnesium Hydroxide (Milk Of Magnesia) 30 ml PO DAILY PRN PRN Reason: Heartburn Stop: 06/15/18 10:25 Metformin HCl (Glucophage) 500 mg PO BIDM [facility] Stop: 06/15/18 17:44 Last Admin: 05/17/18 17:19 Dose: 500 mg Miscellaneous (Carbohydrates For Hypoglycemia) 15 - 30 gm PO UD PRN PRN Reason: Hypoglycemia Treatment Stop: 06/15/18 10:36 Miscellaneous Information (Consult Glycemic Management Pharmacy) 1 ea N/A UD [facility] Stop: 06/15/18 10:30 Paroxetine HCl (Paxil) 40 mg PO QAM [facility] Stop: 06/16/18 08:59 Last Admin: 05/17/18 08:47 Dose: 40 mg Sitagliptin Phosphate (Januvia) 50 mg PO QAM [facility] Stop: 06/16/18 13:59 Last Admin: 05/17/18 14:08 Dose: 50 mg Sodium Chloride ([place] Nasal) 1 - 2 sprays NA PRN PRN PRN Reason: Nasal Dryness/Congestion Stop: 06/15/18 10:25 Last Admin: 05/17/18 12:04 Dose: 2 sprays Post Discharge Appointments Primary Care Physician Name Of Family Doctor: Dr. Koffi Arceo [facility] Primary Care Provider Appointment Comment: [address] [place] [address] Therapist Name of Therapist: n/a Sheet [place] Taper Name of Sheet Rock Taper: n/a Contact Information Discharge Discharge Address: [place] [address] CPT Code CPT Code 26825 [id number] _ (1) Depression Active/Remission status: Depression Type: unspecified Major depression episode severity: Major depression recurrence: Psychotic features: Trimester: Qualified Code(s): F32.9 - Major depressive disorder, single episode, unspecified
--- NOTE | 2018-05-18 09:04 | Pharmacy Report ---
Pharmacy Glycemic Short Note 2 - Date of Service May 18, 2018 - Glycemic Short BSG Results (Last 24 hours): 05/17/18 05/17/18 05/17/18 07:31 12:09 16:55 POC Glucose 161 H 153 H 178 H 05/18/18 08:34 POC Glucose 192 H PLAN FOR DISCHARGE: * Given Mr. Bustillos's PMH and his aversion to insulin needles, I would recommend Januvia 100mg QAM in addition to his current Metformin regimen * I would encourage prompt f/u with his PCP or [facility] layer to potentially titrate his metformin
[2018-05-18] MEDS: PARoxetine HCl 20 MG TAB PO SCH (09:12)
[2018-05-18] MEDS: METFORMIN HCL 500 MG TAB PO SCH (09:13)
[2018-05-18] MEDS: ASPIRIN 81 MG ECTAB PO SCH (09:13)
[2018-05-18] MEDS: SITAGLIPTIN PHOSPHATE 25 MG TAB PO SCH (09:13)
--- NOTE | 2018-05-18 09:19 | Discharge Summary ---
Date of Service May 18, 2018 History of Present Illness Patient reports a long history of depression and anxiety with 4 previous inpatient psychiatric hospitalizations, but currently receives medications from his PCP and has no outpatient mental health care. He reports worsening mood and anxiety symptoms for the past 2 weeks, with suicidal thoughts to shoot himself, and has access to guns. His accompanied him to the ER, and they report a good relationship. The patient endorsed depressed mood, poor motivation, decreased appetite, weight loss, sleep disruption, and difficulty functioning on a daily basis. He reported severe anxiety with restlessness, irritability, and sleep interference. He reported drinking a lot of soda when he feels anxious, which then causes him to urinate frequently and feel dehydrated. He increased his paroxetine dose from 20mg to 40mg daily about 5 days ago, as he has been on that dose in the past. 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 On my assessment, he reports worsening anxiety x 2 weeks, which he describes as "no motivation, don't want to do anything, just sit and drink soda." He reports feeling "somewhat " on edge/nervous, and mood is predominantly depressed. He endorses poor energy, decreased sleep, amotivation, hasn't showered for days, decreased appetite with slight weight loss, and SI that "comes and goes." He has thoughts "to take a gun, put it to my head," and has access to guns. He doesn't want to hurt himself and says he wants to get help. Denies crying spells , guilt, and anhedonia. He denies stressors, "I don't have much to worry about. " He enjoys spending time with his grandchildren. For the past week he has been spending all day "just sitting in the chair watching TV," and says his was worried about him. Although he repeatedly referred to "anxiety," when discussing the difference between depression and anxiety, he says it is more depression. 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 Denies symptoms of panic, john, and psychosis. Physical Exam Psychiatric Orientation: alert, oriented x 3 and cooperative Apperance: appropriately dressed and + disheveled Limited grooming, unshaven; adequate hygiene Eye Contact: good eye contact Motor Behavior: steady gait and station and no abnormal motor movements Speech: normal rate/rhythm/volume of speech Affect: euthymic affect and mood congruent with affect "Pretty good." Thought Process: goal directed thought process Thought Content: reality based without delusions Suicidal Thoughts: denies suicidal thoughts Homicidal Thoughts: denies homicidal thoughts Hallucinations: no auditory hallucinations and no visual hallucinations Cognition: recent memory grossly intact, attention grossly intact and language grossly intact Estimated Intelligence: average estimated intelligence Insight: + fair insight Judgement: + fair judgement Vital Signs (Past 24 Hours) Last Vital Signs Temp 36.7 C 05/18/18 06:57 Pulse 94 H 05/18/18 06:57 Resp 16 05/18/18 06:57 BP 156/96 H 05/18/18 06:57 Pulse Ox 98 05/16/18 11:26 Principal Diagnosis Major depressive disorder, recurrent, severe without psychosis. Psychiatric Data Patient was on the behavioral health unit for 2 days. He was continued on fluoxetine 40 mg daily, as he had just increased the dose several days prior to admission. He tolerated it well, and mood improved throughout his stay. He was eating well, and slept 6-7 hours a night. He was seen by the diabetic pharmacist due to elevated blood glucose, and started on Januvia in addition to his home dose of metformin. He was also seen by the nursing home physician due to poor disease control with a hemoglobin A1c of 8.7%, and the roles of medications , diet, physical activity, and other lifestyle changes were discussed with respect to his diabetes. He reported resolution of suicidal thoughts, and was able to work on healthy coping skills and discharge safety plan. He attended and participated in groups, and had a family meeting with his and adult son on 05/17/2018. They discussed the events that led to his hospitalization, noted he had been isolating at home, not engaging in activities, watching excessive TV, and was more restless and fidgety. The family agreed that his symptoms typically worsen in the winter months. Seasonal affective disorder was discussed, including ways to combat depression with behavioral and cognitive changes. Patient had limited ideas for improving self-care and coping. Recommendations for outpatient therapy and psychiatric care were discussed, which the patient agreed to think about, but ultimately declined. His and son were contacted regarding discharge, denied any safety concerns , and confirmed that the guns had been secured. Day of Discharge Assessment Staff report the patient has been participating in groups, and despite multiple staff meeting with him to discuss the benefits of outpatient therapy and psychiatric care, he is declining referrals, and wants to continue seeing his PCP. On my assessment, he reports mood is improved, describes it is "pretty good," and denies suicidal thoughts. He feels almost back to baseline, although reports he still has brief periods where he has anxious thoughts, for example thinking about all he has to do to settle his uncle's estate. He says his uncle in August, and was a hoarder, so he is going through all of his belongings and holding multiple auctions to sell everything. He wants to clean out his uncle's house so that his son can renovated and move into it. He reports sleep is much improved, but he continues to wake up once overnight, and sometimes has difficulty falling back asleep due to anxious thoughts. We reviewed sleep hygiene in detail, and he was provided with a handout on the topic. He reports good support from his family, and is looking forward to going home. He denies any safety concerns with discharge. He remains unwilling for outpatient therapy and psychiatry, feeling that he does not need it, but was willing to accept information for local outpatient provider should he change his mind. Transition of Care Transition Of Care Record: was reviewed with the patient Advance Directives Advance Directives Information Provided: Yes Advance Directives: No Mental Health Advance Directive: No Advance Directives on File: No Living Will: No Power of Repatcher: No Advance Directives Reason:: Declines as Mental Health Visit. Risk Factors Assessment Risk factors were mitigated by admission to the inpatient unit, adjusting medications to target depression and anxiety, educating the patient about his diagnoses and the treatment recommendations, involving him in groups and therapy , working on healthy coping skills and a discharge safety plan, treating comorbid medical conditions, family meeting with his and son, confirming that the family had secured firearms prior to discharge that the patient would not have access, and scheduling outpatient follow-up with his PCP. Mood has improved, suicidal ideation has resolved, and he is attending to ADLs independently and taking medications as prescribed. He is requesting discharge , and is he is no longer at acute risk of harm to himself, can be managed as an outpatient at this time. He does not have current risk factors for harm to others. Male: Yes : Yes Do You Have Access To A Gun?: Yes Health Problems: Yes Mental Health Diagnoses: Yes Substance Use Disorders: No Previous Attempt: No Family History of Suicide: No Previous Psychiatric Hospitalization: Yes Hopelessness: No Smoker: No Protective Factors Assessment : Yes Responsible for Young Children: No Employed: Yes ([employer], currently laid off and picking up side work) Stable Relationships: Yes Supportive Family: Yes Tobacco Cessation at Discharge Tobacco Cessation Medication Prescribed at Discharge: Not Applicable/Non-Smoker Total Time Total Time Spent: Greater Than 30 Minutes Total Time Includes: Examination of the patient, Discharge Planning and Medication Reconciliation Discharge Data Lab Results 05/16/18 05/16/18 05/16/18 08:20 08:20 08:49 WBC 9.42 RBC 5.61 Hgb 16.3 Hct 47.5 MCV 84.7 MCH 29.1 MCHC 34.3 RDW Std Deviation 39.1 RDW Coeff of [place] 12.8 Plt Count 217 MPV 10.6 H Immature Gran % (Auto) 0.2 Neut % (Auto) 77.8 Lymph % (Auto) 16.0 [place] % (Auto) 5.1 Eos % (Auto) 0.7 Baso % (Auto) 0.2 Immature Gran # (Auto) 0.02 Neut # (Auto) 7.32 H Lymph # (Auto) 1.51 [place] # (Auto) 0.48 Eos # (Auto) 0.07 Baso # (Auto) 0.02 Sodium Potassium Chloride Carbon Dioxide Anion Gap BUN Creatinine Est Cr Clr Drug Dosing Est GFR ( Amer) Est GFR (Non-Af Amer) BUN/Creatinine Ratio Glucose POC Glucose Estimat Average Glucose Hemoglobin A1c Calcium Total Bilirubin AST ALT Alkaline Phosphatase Total Protein Albumin Globulin Albumin/Globulin Ratio TSH Urine Color Yellow Urine Appearance Clear Urine pH 5.5 Ur Specific [place] 1.015 Urine Protein Trace H Urine Glucose (UA) 1+ H Urine Ketones 1+ H Urine Blood Negative Urine Nitrite Negative Urine Bilirubin Negative Urine Urobilinogen Negative Ur Leukocyte Esterase Negative Urine WBC (Auto) 1-5 Urine RBC (Auto) 0-4 U Hyaline Cast (Auto) 5-10 H U Epithel Cells (Auto) 5-10 H Urine Bacteria (Auto) Negative Salicylates Urine Opiates Screen Neg Ur Methadone, Qual Neg Acetaminophen Urine Barbiturates Neg Ur Phencyclidine (PCP) Neg U Amphetamin/Meth Scrn Neg MDMA (Ecstasy) Screen Neg U Benzodiazepines Scrn Neg Ur Cocaine Metabolite Neg U Marijuana (THC) Screen Neg Ethyl Alcohol mg/dL 05/16/18 05/16/18 05/16/18 08:49 08:49 08:49 WBC RBC Hgb Hct MCV MCH MCHC RDW Std Deviation RDW Coeff of [place] Plt Count MPV Immature Gran % (Auto) Neut % (Auto) Lymph % (Auto) [place] % (Auto) Eos % (Auto) Baso % (Auto) Immature Gran # (Auto) Neut # (Auto) Lymph # (Auto) [place] # (Auto) Eos # (Auto) Baso # (Auto) Sodium 134 L Potassium 3.3 L Chloride 98 Carbon Dioxide 28 Anion Gap 8.0 BUN 8 Creatinine 1.05 Est Cr Clr Drug Dosing 108.2 Est GFR ( Amer) 92.2 Est GFR (Non-Af Amer) 79.5 BUN/Creatinine Ratio 7.5 L Glucose 226 H POC Glucose Estimat Average Glucose Hemoglobin A1c Calcium 8.7 Total Bilirubin 0.7 AST 30 ALT 51 Alkaline Phosphatase 82 Total Protein 7.9 Albumin 3.6 Globulin 4.3 H Albumin/Globulin Ratio 0.8 L TSH 0.920 Urine Color Urine Appearance Urine pH Ur Specific [place] Urine Protein Urine Glucose (UA) Urine Ketones Urine Blood Urine Nitrite Urine Bilirubin Urine Urobilinogen Ur Leukocyte Esterase Urine WBC (Auto) Urine RBC (Auto) U Hyaline Cast (Auto) U Epithel Cells (Auto) Urine Bacteria (Auto) Salicylates < 1.7 L Urine Opiates Screen Ur Methadone, Qual Acetaminophen < 2 L Urine Barbiturates Ur Phencyclidine (PCP) U Amphetamin/Meth Scrn MDMA (Ecstasy) Screen U Benzodiazepines Scrn Ur Cocaine Metabolite U Marijuana (THC) Screen Ethyl Alcohol mg/dL < 3.0 05/16/18 05/16/18 05/16/18 08:49 14:49 17:06 WBC RBC Hgb Hct MCV MCH MCHC RDW Std Deviation RDW Coeff of [place] Plt Count MPV Immature Gran % (Auto) Neut % (Auto) Lymph % (Auto) [place] % (Auto) Eos % (Auto) Baso % (Auto) Immature Gran # (Auto) Neut # (Auto) Lymph # (Auto) [place] # (Auto) Eos # (Auto) Baso # (Auto) Sodium Potassium Chloride Carbon Dioxide Anion Gap BUN Creatinine Est Cr Clr Drug Dosing Est GFR ( Amer) Est GFR (Non-Af Amer) BUN/Creatinine Ratio Glucose POC Glucose 149 H 177 H Estimat Average Glucose 203 Hemoglobin A1c 8.7 H Calcium Total Bilirubin AST ALT Alkaline Phosphatase Total Protein Albumin Globulin Albumin/Globulin Ratio TSH Urine Color Urine Appearance Urine pH Ur Specific [place] Urine Protein Urine Glucose (UA) Urine Ketones Urine Blood Urine Nitrite Urine Bilirubin Urine Urobilinogen Ur Leukocyte Esterase Urine WBC (Auto) Urine RBC (Auto) U Hyaline Cast (Auto) U Epithel Cells (Auto) Urine Bacteria (Auto) Salicylates Urine Opiates Screen Ur Methadone, Qual Acetaminophen Urine Barbiturates Ur Phencyclidine (PCP) U Amphetamin/Meth Scrn MDMA (Ecstasy) Screen U Benzodiazepines Scrn Ur Cocaine Metabolite U Marijuana (THC) Screen Ethyl Alcohol mg/dL 05/16/18 05/17/18 05/17/18 20:57 07:31 12:09 WBC RBC Hgb Hct MCV MCH MCHC RDW Std Deviation RDW Coeff of [place] Plt Count MPV Immature Gran % (Auto) Neut % (Auto) Lymph % (Auto) [place] % (Auto) Eos % (Auto) Baso % (Auto) Immature Gran # (Auto) Neut # (Auto) Lymph # (Auto) [place] # (Auto) Eos # (Auto) Baso # (Auto) Sodium Potassium Chloride Carbon Dioxide Anion Gap BUN Creatinine Est Cr Clr Drug Dosing Est GFR ( Amer) Est GFR (Non-Af Amer) BUN/Creatinine Ratio Glucose POC Glucose 185 H 161 H 153 H Estimat Average Glucose Hemoglobin A1c Calcium Total Bilirubin AST ALT Alkaline Phosphatase Total Protein Albumin Globulin Albumin/Globulin Ratio TSH Urine Color Urine Appearance Urine pH Ur Specific [place] Urine Protein Urine Glucose (UA) Urine Ketones Urine Blood Urine Nitrite Urine Bilirubin Urine Urobilinogen Ur Leukocyte Esterase Urine WBC (Auto) Urine RBC (Auto) U Hyaline Cast (Auto) U Epithel Cells (Auto) Urine Bacteria (Auto) Salicylates Urine Opiates Screen Ur Methadone, Qual Acetaminophen Urine Barbiturates Ur Phencyclidine (PCP) U Amphetamin/Meth Scrn MDMA (Ecstasy) Screen U Benzodiazepines Scrn Ur Cocaine Metabolite U Marijuana (THC) Screen Ethyl Alcohol mg/dL 05/17/18 05/18/18 16:55 08:34 WBC RBC Hgb Hct MCV MCH MCHC RDW Std Deviation RDW Coeff of [place] Plt Count MPV Immature Gran % (Auto) Neut % (Auto) Lymph % (Auto) [place] % (Auto) Eos % (Auto) Baso % (Auto) Immature Gran # (Auto) Neut # (Auto) Lymph # (Auto) [place] # (Auto) Eos # (Auto) Baso # (Auto) Sodium Potassium Chloride Carbon Dioxide Anion Gap BUN Creatinine Est Cr Clr Drug Dosing Est GFR ( Amer) Est GFR (Non-Af Amer) BUN/Creatinine Ratio Glucose POC Glucose 178 H 192 H Estimat Average Glucose Hemoglobin A1c Calcium Total Bilirubin AST ALT Alkaline Phosphatase Total Protein Albumin Globulin Albumin/Globulin Ratio TSH Urine Color Urine Appearance Urine pH Ur Specific [place] Urine Protein Urine Glucose (UA) Urine Ketones Urine Blood Urine Nitrite Urine Bilirubin Urine Urobilinogen Ur Leukocyte Esterase Urine WBC (Auto) Urine RBC (Auto) U Hyaline Cast (Auto) U Epithel Cells (Auto) Urine Bacteria (Auto) Salicylates Urine Opiates Screen Ur Methadone, Qual Acetaminophen Urine Barbiturates Ur Phencyclidine (PCP) U Amphetamin/Meth Scrn MDMA (Ecstasy) Screen U Benzodiazepines Scrn Ur Cocaine Metabolite U Marijuana (THC) Screen Ethyl Alcohol mg/dL Post Discharge Appointments Primary Care Physician Name Of Family Doctor: Dr. Koffi Arceo, [facility] Date of Appointment with PCP: 05/20/18 Time of Appointment with PCP: 10:45am Provider Appointment Comment: [phone] [place] [id number] Therapist Name of Therapist: n/a Senior Ios Software Engineer Name of Senior Ios Software Engineer: n/a Smoking Cessation Counseling Tobacco Cessation Medication Prescribed at Discharge: Not Applicable/Non-Smoker Contact Information Discharge Discharge [address]: [address] [place] [address] [place] [id number] Discharge Plan Discharge Items Patient Disposition: Home - Self-Care Reason For Visit: DEPRESSION,SUICIDAL IDEATION Discharge Diagnosis: Major depressive disorder, recurrent, severe without psychosis. Discharge Goals: Improve disease control, Learn about illness, Specific goals and Therapeutic intervention Specific Goals: We recommended outpatient therapy and psychiatric follow up. Activity: Per 'Additional Instructions' section Non-emergency contact: Primary Care Provider Call non-emergency contact if: you have any medication questions and your symptoms worsen Diet: Carb Consistent or DM2 Addtl Provider Instructions: SPECIAL CARE INSTRUCTIONS: 1. Follow through with your scheduled aftercare appointments. If unable to keep an appointment, please call to reschedule. We recommended you follow up with an outpatient therapist and psychiatrist, but you declined this, so follow up with your PCP will be scheduled. 2. Take your medication only as prescribed. Medication should not be changed or stopped without the approval of your doctor. In the event of worsening symptoms or concerns about side effects, contact your doctor immediately. 3. Utilize new healthy coping skills, anger management skills, and stress management skills learned during your hospitalization. Journal feelings and process them with a support person. Identify stressors or situations that may result in relapse, deterioration or inappropriate behaviors and develop a plan to deal with those issues. 4. If your coping skills are ineffective and you are in crisis, contact your outpatient providers for direction. If unable to reach your providers, please call the CAN HELP LINE AT or go to the closest Emergency Room. 5. Avoid alcohol and un-prescribed drugs. 6. You have been provided with the Mental Health Advance Directives Pamphlet for your review. AFTERCARE APPOINTMENTS: * Please call your insurance company prior to your scheduled appointment to confirm your aftercare providers are covered. Take your insurance information to your appointments. WHO TO CALL AND WHEN: Medical Emergencies: For questions or emergencies related to your hospital stay, please contact the Inpatient Behavioral Health Unit at [phone]. A hydrocrane operator is on-call 01/12 for the Behavioral Health Unit for emergencies At any time you feel your situation is an emergency, you may also call 911 immediately. Your Doctors Instructions noted above were prepared by provider Tayler Pisano MD. Prescriptions: New sitagliptin [Januvia] 100 mg tablet 100 mg PO DAILY Qty: 30 RF: 0 paroxetine HCl 40 mg Tablet 40 mg PO HS Qty: 30 RF: 0 Continue metformin 500 mg tablet 500 mg PO BID RF: 0 aspirin [Aspirin Low Dose] 81 mg Tablet,Delayed Release (Dr/Ec) 81 mg PO HS RF: 0 losartan-hydrochlorothiazide 50-12.5 mg tablet 0.5 tab PO HS RF: 0 Visit Report Forms: My [employer] Portal Stand-Alone Forms: My [facility] Discharge Orders: Discharge Order (Routine); Ordered 05/18/18 Ordered By: Tayler Pisano Admission Data Admit Date/Time: 05/16/18 10:26 Attending Provider: Tayler Pisano Admit Provider: Tayler Pisano Primary Care Provider: Koffi Doan Service: Psychiatry Other Interventions: PSY Interdisciplinary Discharge Planning Last Done: 05/17/18 15:47 Pending Studies at Discharge: No
== END 2018-05-18 12:01 | disposition home or self-care (01) | DRG 885 ==
LOC: ED 08:10 → 3S 10:26

== ENCOUNTER 2018-08-06 11:01 | Inpatient (IN) ==
[2018-08-06 12:04] LABS: Basophils # (auto) 0.03 K/uL (0-0.2); Basophils % (auto) 0.3 %; Eosinophils # (auto) 0.04 K/uL (0-0.5); Eosinophils % (auto) 0.4 %; Hematocrit (blood only) 45.3 % (42-52); Hemoglobin 16.1 g/dL (14.0-18.0); Immature Granulocytes # (auto) 0.02 K/uL (0.00-0.02); Immature Granulocytes % (auto) 0.2 %; Lymphocytes # (auto) 1.72 K/uL (1.2-3.4); Lymphocytes % (auto) 18.8 %; Mean Corpuscular Hgb Conc 35.5 g/dL (32-36); Mean Corpuscular Volume 84.4 fL (80-100); Mean Platelet Volume 10.2 fL (7.4-10.4); Monocytes # (auto) 0.53 K/uL (0.11-0.59); Monocytes % (auto) 5.8 %; Neutrophils # (auto) 6.82 K/uL (1.4-6.5); Neutrophils % (auto) 74.5 %; Platelet Count 242 K/uL (130-400); RDW Coefficient of Variation 13.3 % (11.5-14.5); RDW Standard Deviation 40.4 fL (36.4-46.3); Red Blood Count 5.37 M/uL (4.7-6.1); White Blood Count 9.16 K/uL (4.8-10.8)
[2018-08-06 12:10] LABS: Appearance Urine Clear (Clear); Bilirubin Urine Negative (Negative); Blood Urine Negative (Negative); Color Urine Yellow; Glucose Urine UA Negative (Negative); Ketones Urine Negative (Negative); Leukocyte Esterase Urine Negative (Negative); Nitrite Urine Negative (Negative); Protein Urine Negative (Negative); Specific Gravity Urine <= 1.005 (1.000-1.030); Urobilinogen Urine Negative (Negative)
[2018-08-06 12:21] LABS: Potassium 3.7 mmol/L (3.5-5.1)
[2018-08-06 12:22] LABS: Albumin Level 3.8 gm/dl (3.4-5.0); BUN Creatinine Ratio 9.4 (10-20); Calcium 9.2 mg/dl (8.5-10.1); Creatinine Clr Calc Pharmacy 109.5 ml/min; Est GFR (African American) 97.8; Est GFR (Non-African American) 84.4
[2018-08-06 12:30] LABS: Acetaminophen < 2 ug/ml (10-30); Salicylate < 1.7 mg/dl (2.8-20)
[2018-08-06 12:32] LABS: Bilirubin,Total 0.7 mg/dl (0.2-1); Globulin 3.8 gm/dl (2.5-4.0); Total Protein 7.6 gm/dl (6.4-8.2)
[2018-08-06 12:39] LABS: Amphetamines+Metham, Urine Neg (Neg); Barbiturates, Urine Neg (Neg); Benzodiazepine, Urine Neg (Neg); Cocaine, Urine Neg (Neg); MDMA (Ecstacy), Urine Neg (Neg); Methadone, Urine Neg (Neg); Opiate, Urine Neg (Neg); Phencyclidine, Urine Neg (Neg)
--- NOTE | 2018-08-06 14:42 | Emergency Department Note ---
Entered by Marina Hernandez acting as a scribe for History of Present Illness General Chief complaint: Anxiety Stated complaint: ANXIETY Time Seen by Provider: 08/06/18 11:15 Source: patient History of Present Illness Onset (ago): week(s) 1 Location: head Pain Consistency: + other (worsening) Quality: + other (mental health) Associated symptoms: + denies other symptoms (congestion, ever hurting himself, diarrhea, hallucinations), + chest pain (tightness), + diaphoresis, + loss of appetite and + other (suicidal ideations with a plan); no cough, no fever/chills and no nausea/vomiting The patient is a 53 year old male who presents to the Emergency Room for a mental health evaluation. The patient states that he has a history of depression for 25 years and states that he is on Paxil. He states that he has struggled with suicidal thoughts for years, but it has been worse over the past week. He states that he has been thinking about it a lot more and has the plan to hang himself. He reports that he was just trying to deal with it, but then this morning his mind was racing when he woke up so he decided to come in. The patient notes that he was just in the [place] in May. He notes that he lost his job 2 days ago due to his mental health, but has been unconcerned about it since he thinks he can get a job quickly still. The patient complains of loss of appetite, intermittent sweating, and a persistent tight chest. He notes his symptoms are worse when he first gets up in the morning. He notes that he has lost 30 lbs since May. The patient denies anything triggering this event, ever hurting himself in the past, fever, chills, cough, congestion, nausea, vomiting, diarrhea, hallucinations, use of drugs, and use of alcohol. Home Medications Home Medications Medication Instructions Recorded Confirmed Type aspirin [Aspirin Low Dose] 81 mg PO HS 05/16/18 08/06/18 History losartan-hydrochlorothiazide 0.5 tab PO HS 05/16/18 08/06/18 History paroxetine HCl 40 mg PO HS #30 tab 05/18/18 08/06/18 Rx metformin 1,000 mg PO BID 08/06/18 08/06/18 History Allergies Allergy/AdvReac Type Severity Reaction Status Date / Time mildew Allergy Unknown Uncoded 08/06/18 11:39 Past Med/Surg History Medical History Dyslipidemia (Acute) Diabetes mellitus type 2 in obese (Acute) HTN (hypertension) Anxiety (Acute) Depression (Acute) Suicidal ideation (Acute) Subconjunctival hemorrhage, traumatic (Acute) Anxiety (Chronic) Depression (Chronic) Diabetes (Chronic) HLD (hyperlipidemia) (Chronic) HTN (hypertension) (Chronic) Family History Other Cancer Hypertension Social History Preferred Language: [place] Citizen Communication Ability: Effective [employer]ach [employer]ift [employer] Driver Required: No Beliefs That Will Affect Care: None marital status: Current Living Situation: Spouse current occupational status: unemployed Feels Safe at Home: Yes Smoking Status: Never smoker Review of Systems See HPI for pertinent positives & negatives. and A total of 10 systems reviewed and were otherwise negative Physical Exam Vital Signs Vital Signs - 24 hr 08/06/18 11:05 08/06/18 15:51 08/06/18 16:13 Temperature 36.4 C L 36.3 C L Temperature Source Oral Oral Sepsis Recent Fever Within 48 Hours No Sepsis New/Unexplained Change in Mental Status No Sepsis Action Taken by Nursing No Action Required Pulse Rate 86 79 Pulse Rate [Radial] 77 Pulse Rhythm [Radial] Regular Pulse Strength [Radial] Normal Respiratory Rate 16 18 16 Respiratory Effort / Characteristics Non-Labored Spontaneous Respiratory Depth Normal Respiratory Pattern Regular Blood Pressure 101/66 156/86 H Blood Pressure [Left Arm] 154/108 H Blood Pressure Mean 77 Blood Pressure Mean [Left Arm] 123 Blood Pressure Position [Left Arm] Sitting Pulse Oximetry 98 97 Oxygen Delivery Method Room Air Room Air 08/06/18 16:24 Temperature Temperature Source Sepsis Recent Fever Within 48 Hours Sepsis New/Unexplained Change in Mental Status Sepsis Action Taken by Nursing Pulse Rate Pulse Rate [Radial] Pulse Rhythm [Radial] Pulse Strength [Radial] Respiratory Rate Respiratory Effort / Characteristics Non-Labored Spontaneous Respiratory Depth Normal Respiratory Pattern Regular Blood Pressure Blood Pressure [Left Arm] Blood Pressure Mean Blood Pressure Mean [Left Arm] Blood Pressure Position [Left Arm] Pulse Oximetry Oxygen Delivery Method GENERAL: Awake, alert, melancholy appearing, in no distress HENT: Normocephalic, atraumatic. Oropharynx unremarkable. EYES: Normal conjunctiva. Sclera non-icteric. NECK: Supple. No nuchal rigidity. FROM. No JVD. RESPIRATORY: Clear to auscultation. CARDIAC: Regular rate, normal rhythm. Extremities warm and well perfused. Pulses equal. ABDOMEN: Soft, non-distended. No tenderness to palpation. No rebound or guarding. No masses. RECTAL: Deferred. MUSCULOSKELETAL: Chest examination reveals no tenderness. The back is symmetrical on inspection without obvious abnormality. There is no CVA tenderness to palpation. No joint edema. LOWER EXTREMITIES: Calves are equal size bilaterally and non-tender. No edema. No discoloration. NEURO: Normal sensorium. No sensory or motor deficits noted. SKIN: No rash or jaundice noted. Psych: Positive suicidal ideations with a plan. No hallucinations. Course 1229: Past medical records reviewed. The patient was evaluated in room A12A, and a complete history and physical examination were performed. 1259: The patient was medically cleared at this time. 1501: The patient was accepted to [address] [place] [address]. Administered Medications Aspirin (Ecotrin Ectab) 81 mg PO [facility] Stop: 09/05/18 21:59 Last Admin: 08/06/18 21:35 Dose: 81 mg Documented by: [id number] HCTZ/Losartan Potassium (Hyzaar 50/12.5mg) 0.5 tab PO [facility] Stop: 09/05/18 20:59 Last Admin: 08/06/18 21:36 Dose: 0.5 tab Documented by: [id number] Metformin HCl (Glucophage) 1,000 mg PO BID [facility] Stop: 09/05/18 17:44 Last Admin: 08/06/18 18:18 Dose: 1,000 mg Documented by: [id number] Paroxetine HCl (Paxil) 20 mg PO [facility] Stop: 09/05/18 21:59 Last Admin: 08/06/18 21:37 Dose: 20 mg Documented by: [id number] Sertraline HCl (Zoloft) 25 mg PO [facility] Stop: 09/05/18 21:59 Last Admin: 08/06/18 21:35 Dose: 25 mg Documented by: [id number] Medical Decision Making Differential Diagnosis Differential diagnosis: Etiologies such as psychiatric disorder, infection, hypoglycemia, electrolyte abnormalities, cardiac sources, intracerebral event, toxicological process, neurologic disorder, as well as others were entertained. Medical Records Attestation: I reviewed the patient's medical records. Home Medications Current Medication List: was personally reviewed by me Laboratory Data Attestation: I reviewed the patient's lab results. Result diagrams: 08/06/18 11:48 08/06/18 11:48 Lab Results 08/06/18 08/06/18 08/06/18 Range/Units 11:45 11:45 11:48 WBC 9.16 (4.8-10.8) K/uL RBC 5.37 (4.7-6.1) M/uL Hgb 16.1 (14.0-18.0) g/dL Hct 45.3 (42-52) % MCV 84.4 (80-100) fL MCH 30.0 (25-34) pg MCHC 35.5 (32-36) g/dL RDW Std Deviation 40.4 (36.4-46.3) fL RDW Coeff of Conchita 13.3 (11.5-14.5) % Plt Count 242 (130-400) K/uL MPV 10.2 (7.4-10.4) fL Immature Gran % (Auto) 0.2 % Neut % (Auto) 74.5 % Lymph % (Auto) 18.8 % [place] % (Auto) 5.8 % Eos % (Auto) 0.4 % Baso % (Auto) 0.3 % Immature Gran # (Auto) 0.02 (0.00-0.02) K/uL Neut # (Auto) 6.82 H (1.4-6.5) K/uL Lymph # (Auto) 1.72 (1.2-3.4) K/uL [place] # (Auto) 0.53 (0.11-0.59) K/uL Eos # (Auto) 0.04 (0-0.5) K/uL Baso # (Auto) 0.03 (0-0.2) K/uL Sodium (136-145) mmol/L Potassium (3.5-5.1) mmol/L Chloride (98-107) mmol/L Carbon Dioxide (21-32) mmol/L Anion Gap (3-11) BUN (7-18) mg/dl Creatinine (0.6-1.4) mg/dl Est Cr Clr Drug Dosing ml/min Est GFR ( Amer) Est GFR (Non-Af Amer) BUN/Creatinine Ratio (10-20) Glucose (70-99) mg/dl Calcium (8.5-10.1) mg/dl Total Bilirubin (0.2-1) mg/dl AST (15-37) U/L ALT (12-78) U/L Alkaline Phosphatase (45-117) U/L Total Protein (6.4-8.2) gm/dl Albumin (3.4-5.0) gm/dl Globulin (2.5-4.0) gm/dl Albumin/Globulin Ratio (0.9-2) TSH (0.300-4.500) uIu/ml Urine Color Yellow Urine Appearance Clear (Clear) Urine pH 6.0 (4.5-7.5) Ur Specific [place] <= 1.005 (1.000-1.030) Urine Protein Negative (Negative) Urine Glucose (UA) Negative (Negative) Urine Ketones Negative (Negative) Urine Blood Negative (Negative) Urine Nitrite Negative (Negative) Urine Bilirubin Negative (Negative) Urine Urobilinogen Negative (Negative) Ur Leukocyte Esterase Negative (Negative) Salicylates (2.8-20) mg/dl Urine Opiates Screen Neg (Neg) Ur Methadone, Qual Neg (Neg) Acetaminophen (10-30) ug/ml Urine Barbiturates Neg (Neg) Ur Phencyclidine (PCP) Neg (Neg) U Amphetamin/Meth Scrn Neg (Neg) MDMA (Ecstasy) Screen Neg (Neg) U Benzodiazepines Scrn Neg (Neg) Ur Cocaine Metabolite Neg (Neg) U Marijuana (THC) Screen Neg (Neg) Ethyl Alcohol mg/dL (0-3) mg/dl 08/06/18 08/06/18 08/06/18 Range/Units 11:48 11:48 11:48 WBC (4.8-10.8) K/uL RBC (4.7-6.1) M/uL Hgb (14.0-18.0) g/dL Hct (42-52) % MCV (80-100) fL MCH (25-34) pg MCHC (32-36) g/dL RDW Std Deviation (36.4-46.3) fL RDW Coeff of Conchita (11.5-14.5) % Plt Count (130-400) K/uL MPV (7.4-10.4) fL Immature Gran % (Auto) % Neut % (Auto) % Lymph % (Auto) % [place] % (Auto) % Eos % (Auto) % Baso % (Auto) % Immature Gran # (Auto) (0.00-0.02) K/uL Neut # (Auto) (1.4-6.5) K/uL Lymph # (Auto) (1.2-3.4) K/uL [place] # (Auto) (0.11-0.59) K/uL Eos # (Auto) (0-0.5) K/uL Baso # (Auto) (0-0.2) K/uL Sodium 138 (136-145) mmol/L Potassium 3.7 (3.5-5.1) mmol/L Chloride 103 (98-107) mmol/L Carbon Dioxide 29 (21-32) mmol/L Anion Gap 6.0 (3-11) BUN 9 (7-18) mg/dl Creatinine 1.00 (0.6-1.4) mg/dl Est Cr Clr Drug Dosing 109.5 ml/min Est GFR ( Amer) 97.8 Est GFR (Non-Af Amer) 84.4 BUN/Creatinine Ratio 9.4 L (10-20) Glucose 133 H (70-99) mg/dl Calcium 9.2 (8.5-10.1) mg/dl Total Bilirubin 0.7 (0.2-1) mg/dl AST 27 (15-37) U/L ALT 37 (12-78) U/L Alkaline Phosphatase 73 (45-117) U/L Total Protein 7.6 (6.4-8.2) gm/dl Albumin 3.8 (3.4-5.0) gm/dl Globulin 3.8 (2.5-4.0) gm/dl Albumin/Globulin Ratio 1.0 (0.9-2) TSH 0.926 (0.300-4.500) uIu/ml Urine Color Urine Appearance (Clear) Urine pH (4.5-7.5) Ur Specific [place] (1.000-1.030) Urine Protein (Negative) Urine Glucose (UA) (Negative) Urine Ketones (Negative) Urine Blood (Negative) Urine Nitrite (Negative) Urine Bilirubin (Negative) Urine Urobilinogen (Negative) Ur Leukocyte Esterase (Negative) Salicylates < 1.7 L (2.8-20) mg/dl Urine Opiates Screen (Neg) Ur Methadone, Qual (Neg) Acetaminophen < 2 L (10-30) ug/ml Urine Barbiturates (Neg) Ur Phencyclidine (PCP) (Neg) U Amphetamin/Meth Scrn (Neg) MDMA (Ecstasy) Screen (Neg) U Benzodiazepines Scrn (Neg) Ur Cocaine Metabolite (Neg) U Marijuana (THC) Screen (Neg) Ethyl Alcohol mg/dL < 3.0 (0-3) mg/dl ECG Data Attestation: I personally reviewed and interpreted this ECG as follows: Indication: chest pain Rate (beats per minute): 76 Rhythm: normal sinus Findings: + other (left anterior vesicular block); no ST depression, no ST elevation and no acute ischemic change Comparison ECG Date: from (08/16/2012) Change: no significant change Blood Pressure Blood Pressure Findings: Normal blood pressure Blood Pressure Disposition: did not require urgent referral MDM Narrative The patient is a pleasant 53 y/o gentleman with a pmhx of anxiety/depression, HTN, DM2 who presents to the emergency department with worsening depression and SI with plan per HPI. On arrival the patient is in NAD, AFVSS. Patient has a melancholy mood. Endorses Si with plan to hang himself. Feels hopeless. Denies attempts at self harm. Labs unremarkable. EKG without overt ischemia and similar to prior. Patient was medically cleared. Patient evaluated by CM and patient is agreeable for admission. Accepted to . 201 signed. Impression & Plan Suicidal ideation Discharge Plan Visit Data *Final* Discharge Date/Time: 08/06/18 15:51 Chief Complaint: Anxiety Stated Complaint: ANXIETY ED Provider: Navjot Alamo Discharge Problem: Suicidal ideation Patient Disposition: Admitted As Inpatient Discharge Instructions Interventions: ED Discharge Assessment Last Done: 08/06/18 15:51 The kelechiibe's documentation has been prepared under my direction and personally reviewed by me in its entirety. I confirm that the note above accurately reflects all work, treatment, procedures, and medical decision making performed by me.
[2018-08-06] MEDS ORDERED: ACETAMINOPHEN 325 MG TAB PO PRN (15:36)
[2018-08-06] MEDS ORDERED: MAGNESIUM HYDROXIDE SUSP 30 ML UDC PO PRN (15:36)
[2018-08-06] MEDS ORDERED: SODIUM CHLORIDE 0.65% NA SOLN 45 ML (OCEAN) PRN (15:36)
[2018-08-06] MEDS ORDERED: ALUMINUM/MAGNESIUM SUSP 30 ML UDC PO PRN (15:36)
[2018-08-06] MEDS ORDERED: BISMUTH SUBSALICYLATE PER ML OMNICELL CHARGE PO PRN (15:36)
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
[2018-08-06] MEDS: METFORMIN HCL 500 MG TAB PO SCH (18:18)
[2018-08-06] MEDS ORDERED: LOSARTAN/HCTZ 50/12.5MG TAB PO SCH (21:00)
[2018-08-06] MEDS: ASPIRIN 81 MG ECTAB PO SCH (21:35)
[2018-08-06] MEDS: PARoxetine HCl 20 MG TAB PO SCH (21:37)
[2018-08-06] MEDS ORDERED: SERTRALINE HCL 50 MG TABLET PO SCH (22:00)
--- NOTE | 2018-08-07 08:26 | Psychiatric Progress Note ---
Date of Service August 07, 2018 Impression / Recommendations Impression 53-year-old male admitted voluntarily for depression, anxiety and intrusive suicidal ideation with thoughts to hang himself. Patient has several previous psychiatric admissions but has never followed through on outpatient treatment. The patient is now reporting a willingness to follow through with recommendations and requested a medication change, so is being cross tapered from paroxetine to sertraline. Inpatient psychiatric treatment is medically necessary due to worsening symptoms of depression and anxiety as well as intrusive suicidal ideation with specific plan to hang himself, and seeking out spots in which he could do this. Without adequate psychiatric treatment and medication of risk factors, the patient is at high risk of harm to self if discharged prematurely. (1) Suicidal ideation: 08/06 - Admitted to a locked inpatient behavioral health unit, on q15 minute safety checks - Encourage medication initiation/adjustments as indicated - Encourage participation in group and recreational therapies - Gather collateral information from outpatient providers - Suggest family meeting to involve outpatient supports in safety planning - Arrange appropriate aftercare 08/07 - Feels safe here, but cannot contract for safety outside the hospital. (2) Depression: 08/06 - Will plan to cross-taper from paroxetine to sertraline - will given 20mg paroxetine and 25mg of sertraline tonight, adjust as tolerated - Involve or other supports in family meeting to discuss patinet's needs moving forward - Highly recommending outpatient psychiatric prescriber and therapy as aftercare plan, patient willing on this admission 08/07 - Continue cross taper - ? discontinuation symptoms, feels "foggy" this morning, so will continue 20 mg for now and continue slow taper off it. Increase sertraline to 50 mg for tonight. (3) Anxiety: 08/06 - As above - Encouraged use of hydroxyzine prn for acute anxiety - Patient not desiring lorazepam at this time, but may be beneficial for frequent panic symptoms if not responding to hydroxyzine - Assist patient with development of healthy and effective coping strategies (4) HTN (hypertension): 08/06 - Continue home antihypertensive agent and closely monitor blood pressure, patient reports compliance - Hypertension was ongoing during May admission and as well as the majority of recent visit - Consider increasing to full tablet of lorasrtan-hydrochlorothiazide if remaining elevated - Reports being told his BP was borderline when seen by PCP this week, outside of stressful inpatient admission process 08/07 -Blood pressure has been consistently high since admission, up to 158/111 today, with heart rate 101. Anxiety may be playing a role, but his blood pressure was also high during his last hospitalization in May, even during times when anxiety was lower. Will increase Hctz/Losartan potassium to 50/12.5mg, and continue to monitor blood pressure. He will need follow-up with his PCP after discharge. (5) Diabetes mellitus type 2 in obese: 08/06 - Managed on an outpatient basis with metformin as monotherapy. Continue medication at this time. - Met with simulation educator during May admission, can request co nsultation if patient desires 08/07 -Continue daily blood glucose monitoring (158 today, during last hospitalization was in the 100-200 range). 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 Chief Complaint "The mornings are the worst". Review of Systems Sleep Information Total Hours of Sleep: 6.5 Sleep Comments: pt on q-15 minute checks Meal Information Percent Meal Consumed - Dinner: 75 Subjective Subjective Patient was seen & assessed and interval progress reviewed with nursing and social work. Staff report he is going to groups, participating in treatment, and is being cross tapered to sertraline. On my assessment, he reports he is frustrated with repeated hospitalizations, stating "I tried to do it myself, but it's still happening." He says the mornings are the worst, he wakes up feeling anxious and overwhelmed. Mood is "about a 5," and he feels anxious and nervous. He denies SI since admission, but does not feel safe leaving the hospital, noting he was thinking about hanging himself in the morning when he first woke up and felt so anxious, and recognizes he can't act on this here in the hospital. He describes intrusive thoughts of suicide, "when I close my eyes, I see what I could do (attempt suicide)." He notes distraction helps (TV or games on phone). He states his BP was "borderline high" when at his PCP's office the day before admission, and no changes were made to his BP medication. He is willing for OP care, noting he had never followed up on it in the past. He reports frustration with his pattern, saying "I just want to get better." Physical Exam Mental Examination Obese WM appearing stated age. Casually dressed, limited hygiene and grooming, seated in NAD. Good eye contact, no abnormal movements. Speech is normal rate, volume and tone. Mood is "nervous," and affect is anxious, depressed, and congruent. Thoughts concrete and goal directed. SI improving, but cannot contract for safety outside the hospital. Denies HI, AVH, paranoia. Alert and oriented. Insight and judgment are impaired. Vital Signs (Past 24 Hours) Last Vital Signs Temp 36.4 C L 08/07/18 06:43 Pulse 101 H 08/07/18 06:44 Resp 18 08/07/18 06:43 BP 158/111 H 08/07/18 06:44 Pulse Ox 97 08/06/18 15:51 Results & Data Laboratory Results Laboratory Results - last 24 hr 08/06/18 08/06/18 08/06/18 11:45 11:45 11:48 WBC 9.16 RBC 5.37 Hgb 16.1 Hct 45.3 MCV 84.4 MCH 30.0 MCHC 35.5 RDW Std Deviation 40.4 RDW Coeff of [place] 13.3 Plt Count 242 MPV 10.2 Immature Gran % (Auto) 0.2 Neut % (Auto) 74.5 Lymph % (Auto) 18.8 [place] % (Auto) 5.8 Eos % (Auto) 0.4 Baso % (Auto) 0.3 Immature Gran # (Auto) 0.02 Neut # (Auto) 6.82 H Lymph # (Auto) 1.72 [place] # (Auto) 0.53 Eos # (Auto) 0.04 Baso # (Auto) 0.03 Sodium Potassium Chloride Carbon Dioxide Anion Gap BUN Creatinine Est Cr Clr Drug Dosing Est GFR ( Amer) Est GFR (Non-Af Amer) BUN/Creatinine Ratio Glucose Calcium Total Bilirubin AST ALT Alkaline Phosphatase Total Protein Albumin Globulin Albumin/Globulin Ratio TSH Urine Color Yellow Urine Appearance Clear Urine pH 6.0 Ur Specific [place] <= 1.005 Urine Protein Negative Urine Glucose (UA) Negative Urine Ketones Negative Urine Blood Negative Urine Nitrite Negative Urine Bilirubin Negative Urine Urobilinogen Negative Ur Leukocyte Esterase Negative Salicylates Urine Opiates Screen Neg Ur Methadone, Qual Neg Acetaminophen Urine Barbiturates Neg Ur Phencyclidine (PCP) Neg U Amphetamin/Meth Scrn Neg MDMA (Ecstasy) Screen Neg U Benzodiazepines Scrn Neg Ur Cocaine Metabolite Neg U Marijuana (THC) Screen Neg Ethyl Alcohol mg/dL 08/06/18 08/06/18 08/06/18 11:48 11:48 11:48 WBC RBC Hgb Hct MCV MCH MCHC RDW Std Deviation RDW Coeff of [place] Plt Count MPV Immature Gran % (Auto) Neut % (Auto) Lymph % (Auto) [place] % (Auto) Eos % (Auto) Baso % (Auto) Immature Gran # (Auto) Neut # (Auto) Lymph # (Auto) [place] # (Auto) Eos # (Auto) Baso # (Auto) Sodium 138 Potassium 3.7 Chloride 103 Carbon Dioxide 29 Anion Gap 6.0 BUN 9 Creatinine 1.00 Est Cr Clr Drug Dosing 109.5 Est GFR ( Amer) 97.8 Est GFR (Non-Af Amer) 84.4 BUN/Creatinine Ratio 9.4 L Glucose 133 H Calcium 9.2 Total Bilirubin 0.7 AST 27 ALT 37 Alkaline Phosphatase 73 Total Protein 7.6 Albumin 3.8 Globulin 3.8 Albumin/Globulin Ratio 1.0 TSH 0.926 Urine Color Urine Appearance Urine pH Ur Specific [place] Urine Protein Urine Glucose (UA) Urine Ketones Urine Blood Urine Nitrite Urine Bilirubin Urine Urobilinogen Ur Leukocyte Esterase Salicylates < 1.7 L Urine Opiates Screen Ur Methadone, Qual Acetaminophen < 2 L Urine Barbiturates Ur Phencyclidine (PCP) U Amphetamin/Meth Scrn MDMA (Ecstasy) Screen U Benzodiazepines Scrn Ur Cocaine Metabolite U Marijuana (THC) Screen Ethyl Alcohol mg/dL < 3.0 Current Inpatient Medications Current Inpatient Medications: Current Inpatient Medications Acetaminophen (Tylenol) 650 mg PO Q4H PRN PRN Reason: Headache or Minor Fever Stop: 09/05/18 15:35 Al Hydrox/Mg Hydrox/Simethicone (Maalox) 30 ml PO Q4H PRN PRN Reason: GI Upset Stop: 09/05/18 15:35 Aspirin (Ecotrin Ectab) 81 mg PO HS RUTHIE Stop: 09/05/18 21:59 Last Admin: 08/06/18 21:35 Dose: 81 mg Documented by: Bismuth Subsalicylate (Kaopectate) 15 ml PO PRN PRN PRN Reason: Loose Stool Stop: 09/05/18 15:35 HCTZ/Losartan Potassium (Hyzaar 50/12.5mg) 0.5 tab PO HS RUTHIE Stop: 09/05/18 20:59 Last Admin: 08/06/18 21:36 Dose: 0.5 tab Documented by: Hydroxyzine HCl (Vistaril) 25 mg PO Q4H PRN PRN Reason: Anxiety Stop: 09/05/18 15:35 Hydroxyzine HCl (Vistaril) 50 mg PO HSZ PRN PRN Reason: Insomnia Stop: 09/05/18 15:35 Magnesium Hydroxide (Milk Of Magnesia) 30 ml PO DAILY PRN PRN Reason: Heartburn Stop: 09/05/18 15:35 Metformin HCl (Glucophage) 1,000 mg PO BIDM RUTHIE Stop: 09/05/18 17:44 Last Admin: 08/06/18 18:18 Dose: 1,000 mg Documented by: Paroxetine HCl (Paxil) 20 mg PO HS RUTHIE Stop: 09/05/18 21:59 Last Admin: 08/06/18 21:37 Dose: 20 mg Documented by: Sertraline HCl (Zoloft) 25 mg PO HS RUTHIE Stop: 09/05/18 21:59 Last Admin: 08/06/18 21:35 Dose: 25 mg Documented by: Sodium Chloride ([place] Nasal) 1 - 2 sprays NA PRN PRN PRN Reason: Nasal Dryness/Congestion Stop: 09/05/18 15:35 Post Discharge Appointments Primary Care Physician Name Of Family Doctor: Dr. Doan @ [facility] Therapist Name of Therapist: None Professional Security Officer Name of Professional Security Officer: None CPT Code CPT Code 26330 (1) Depression Depression Type: unspecified Qualified Code(s): F32.9 - Major depressive disorder, single episode, unspecified
[2018-08-07] MEDS: METFORMIN HCL 500 MG TAB PO SCH ×2 (08:47→17:26)
[2018-08-07] MEDS: ASPIRIN 81 MG ECTAB PO SCH (21:28)
[2018-08-07] MEDS: PARoxetine HCl 20 MG TAB PO SCH (21:28)
[2018-08-07] MEDS: LOSARTAN/HCTZ 50/12.5MG TAB PO SCH (21:28)
[2018-08-07] MEDS ORDERED: SERTRALINE HCL 50 MG TABLET PO SCH (22:00)
--- NOTE | 2018-08-08 08:27 | Psychiatric Progress Note ---
Date of Service August 08, 2018 Impression / Recommendations Impression 53-year-old male admitted voluntarily for depression, anxiety and intrusive suicidal ideation with thoughts to hang himself. Patient has several previous psychiatric admissions but has never followed through on outpatient treatment. The patient is now reporting a willingness to follow through with recommendations and requested a medication change, so is being cross tapered from paroxetine to sertraline. Inpatient psychiatric treatment is medically necessary due to worsening symptoms of depression and anxiety as well as intrusive suicidal ideation with specific plan to hang himself, and seeking out spots in which he could do this. Without adequate psychiatric treatment and medication of risk factors, the patient is at high risk of harm to self if discharged prematurely. (1) Suicidal ideation: 08/06 - Admitted to a locked inpatient behavioral health unit, on q15 minute safety checks - Encourage medication initiation/adjustments as indicated - Encourage participation in group and recreational therapies - Gather collateral information from outpatient providers - Suggest family meeting to involve outpatient supports in safety planning - Arrange appropriate aftercare 08/07 - Feels safe here, but cannot contract for safety outside the hospital. 08/08 -Continues to have suicidal thoughts, but less frequent (this morning when he awoke feeling highly anxious). (2) Depression: 08/06 - Will plan to cross-taper from paroxetine to sertraline - will given 20mg paroxetine and 25mg of sertraline tonight, adjust as tolerated - Involve or other supports in family meeting to discuss patinet's needs moving forward - Highly recommending outpatient psychiatric prescriber and therapy as aftercare plan, patient willing on this admission 08/07 - Continue cross taper - ? discontinuation symptoms, feels "foggy" this morning, so will continue 20 mg for now and continue slow taper off it. Increase sertraline to 50 mg for tonight. 08/08 - Decrease paroxetine to 10 mg at bedtime tonight, and increase sertraline to 100 mg at bedtime. (3) Anxiety: 08/06 - As above - Encouraged use of hydroxyzine prn for acute anxiety - Patient not desiring lorazepam at this time, but may be beneficial for frequent panic symptoms if not responding to hydroxyzine - Assist patient with development of healthy and effective coping strategies (4) HTN (hypertension): 08/06 - Continue home antihypertensive agent and closely monitor blood pressure, patient reports compliance - Hypertension was ongoing during May admission and as well as the majority of recent visit - Consider increasing to full tablet of lorasrtan-hydrochlorothiazide if remaining elevated - Reports being told his BP was borderline when seen by PCP this week, outside of stressful inpatient admission process 08/07 -Blood pressure has been consistently high since admission, up to 158/111 today, with heart rate 101. Anxiety may be playing a role, but his blood pressure was also high during his last hospitalization in May, even during times when anxiety was lower. Will increase Hctz/Losartan potassium to 50/12.5mg, and continue to monitor blood pressure. He will need follow-up with his PCP after discharge. 08/08 - Case discussed with [facility] hospitalist, Dr. Traore. He recommended continuing higher dose of Hyzaar, starting Coreg 6.25 mg twice daily, and low- salt diet, with full consult if blood pressure not improved in the next couple of days. (5) Diabetes mellitus type 2 in obese: 08/06 - Managed on an outpatient basis with metformin as monotherapy. Continue medication at this time. - Met with parent educator during May admission, can request consultation if patient desires 08/07 -Continue daily blood glucose monitoring (158 today, during last hospitalization was in the 100-200 range). 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 Chief Complaint "Pretty good". Review of Systems Sleep Information Total Hours of Sleep: 6.5 Sleep Comments: pt on q-15 minute checks Meal Information Percent Meal Consumed - Breakfast: 100 Percent Meal Consumed - Lunch: 100 Percent Meal Consumed - Dinner: 100 Subjective Subjective Patient was seen & assessed and interval progress reviewed with nursing and social work. Staff report his BP remains elevated, was 161/114 this am with HR of 96. He continues to report severe anxiety, which is the worst in the morning. Spoke with Dr. Barclay ([facility] Hospitalist) and reviewed case and concerns re: HTN. He recommended continuing the higher dose of Hyzaar, start Coreg 6.25mg bid, and low salt diet, with consultation if it doesn't improve. Repeat BP after medication was 148/99. On my assessment the patient reports feeling "pretty good," noting his anxiety is "almost gone" at this point of the day, although he felt "really anxious" this morning when he first woke up and admits to suicidal thoughts at that time. He reports a good visit with his last night, although "I got some bad news, that my son is going to rehab." He thinks his son is addicted to opiates. Physical Exam Mental Examination Obese white male appearing stated age. Casually dressed, adequately groomed, seated in no acute distress. Good eye contact, and no abnormal movements. Calm, cooperative, and pleasant. Speech is spontaneous, normal rate, volume, and tone. Thoughts are linear and goal directed. Mood is "better," and affect is euthymic, mildly anxious, appropriate, and congruent. Denies SI now, but had suicidal thoughts this morning; no HI or psychosis. Alert and oriented. Insight and judgment are fair. Vital Signs (Past 24 Hours) Last Vital Signs Temp 36.6 C 08/08/18 06:50 Pulse 96 H 08/08/18 06:51 Resp 18 08/08/18 06:50 BP 161/114 H 08/08/18 06:51 Pulse Ox 97 08/06/18 15:51 Results & Data Laboratory Results Laboratory Results - last 24 hr 08/07/18 08/08/18 08:18 08:13 POC Glucose 158 H 141 H Current Inpatient Medications Current Inpatient Medications: Current Inpatient Medications Acetaminophen (Tylenol) 650 mg PO Q4H PRN PRN Reason: Headache or Minor Fever Stop: 09/05/18 15:35 Last Admin: 08/07/18 17:27 Dose: 650 mg Documented by: Al Hydrox/Mg Hydrox/Simethicone (Maalox) 30 ml PO Q4H PRN PRN Reason: GI Upset Stop: 09/05/18 15:35 Aspirin (Ecotrin Ectab) 81 mg PO HS RUTHIE Stop: 09/05/18 21:59 Last Admin: 08/07/18 21:28 Dose: 81 mg Documented by: Bismuth Subsalicylate (Kaopectate) 15 ml PO PRN PRN PRN Reason: Loose Stool Stop: 09/05/18 15:35 HCTZ/Losartan Potassium (Hyzaar 50/12.5mg) 1 tab PO [facility] Stop: 09/06/18 21:59 Last Admin: 08/07/18 21:28 Dose: 1 tab Documented by: Hydroxyzine HCl (Vistaril) 25 mg PO Q4H PRN PRN Reason: Anxiety Stop: 09/05/18 15:35 Hydroxyzine HCl (Vistaril) 50 mg PO HSZ PRN PRN Reason: Insomnia Stop: 09/05/18 15:35 Magnesium Hydroxide (Milk Of Magnesia) 30 ml PO DAILY PRN PRN Reason: Heartburn Stop: 09/05/18 15:35 Metformin HCl (Glucophage) 1,000 mg PO BIDM RUTHIE Stop: 09/05/18 17:44 Last Admin: 08/07/18 17:26 Dose: 1,000 mg Documented by: Paroxetine HCl (Paxil) 20 mg PO [facility] Stop: 09/05/18 21:59 Last Admin: 08/07/18 21:28 Dose: 20 mg Documented by: Sertraline HCl (Zoloft) 50 mg PO [facility] Stop: 09/06/18 21:59 Last Admin: 08/07/18 21:28 Dose: 50 mg Documented by: Sodium Chloride ([place] Nasal) 1 - 2 sprays NA PRN PRN PRN Reason: Nasal Dryness/Congestion Stop: 09/05/18 15:35 Post Discharge Appointments Primary Care Physician Name Of Family Doctor: Dr. Doan @ [facility] Name of Therapist: [facility] Date of Therapist Appointment: 08/12/18 Time of Therapist Appointment: 3:00 p.m. Stylist Apprentice Name of Stylist Apprentice: None Contact Information Discharge Discharge [address]: [address] [place] [address] Matilda SUSANA [id number] CPT Code CPT Code 11696 (1) Depression Depression Type: unspecified Qualified Code(s): F32.9 - Major depressive disorder, single episode, unspecified
[2018-08-08] MEDS: METFORMIN HCL 500 MG TAB PO SCH ×2 (08:40→17:13)
[2018-08-08] MEDS: CARVEDILOL 6.25 MG TAB PO SCH ×2 (12:06→21:12)
[2018-08-08] MEDS: LOSARTAN/HCTZ 50/12.5MG TAB PO SCH (21:12)
[2018-08-08] MEDS: ASPIRIN 81 MG ECTAB PO SCH (21:12)
[2018-08-08] MEDS ORDERED: PARoxetine HCl 20 MG TAB PO SCH (22:00)
[2018-08-08] MEDS ORDERED: SERTRALINE HCL 100 MG TABLET PO SCH (22:00)
[2018-08-09] MEDS: METFORMIN HCL 500 MG TAB PO SCH ×2 (08:11→17:26)
[2018-08-09] MEDS: CARVEDILOL 6.25 MG TAB PO SCH ×2 (08:11→21:12)
--- NOTE | 2018-08-09 10:54 | Psychiatric Progress Note ---
Date of Service August 09, 2018 Impression / Recommendations Impression Mood and anxiety improving, and BP better with the addition of Coreg. Will DC Paxil and increase Zoloft to 150 mg daily and if tolerated could consider discharge as soon as tomorrow. (1) Suicidal ideation: 08/06 - Admitted to a locked inpatient behavioral health unit, on q15 minute safety checks - Encourage medication initiation/adjustments as indicated - Encourage participation in group and recreational therapies - Gather collateral information from outpatient providers - Suggest family meeting to involve outpatient supports in safety planning - Arrange appropriate aftercare 08/07 - Feels safe here, but cannot contract for safety outside the hospital. 08/08 -Continues to have suicidal thoughts, but less frequent (this morning when he awoke feeling highly anxious). (2) Depression: 08/06 - Will plan to cross-taper from paroxetine to sertraline - will given 20mg paroxetine and 25mg of sertraline tonight, adjust as tolerated - Involve or other supports in family meeting to discuss patinet's needs moving forward - Highly recommending outpatient psychiatric prescriber and therapy as aftercare plan, patient willing on this admission 08/07 - Continue cross taper - ? discontinuation symptoms, feels "foggy" this morning, so will continue 20 mg for now and continue slow taper off it. Increase sertraline to 50 mg for tonight. 08/08 - Decrease paroxetine to 10 mg at bedtime tonight, and increase sertraline to 100 mg at bedtime. 08/09 - DC Paxil - Increase Zoloft to 150 mg (3) Anxiety: 08/06 - As above - Encouraged use of hydroxyzine prn for acute anxiety - Patient not desiring lorazepam at this time, but may be beneficial for frequent panic symptoms if not responding to hydroxyzine - Assist patient with development of healthy and effective coping strategies (4) HTN (hypertension): 08/06 - Continue home antihypertensive agent and closely monitor blood pressure, patient reports compliance - Hypertension was ongoing during May admission and as well as the majority of recent visit - Consider increasing to full tablet of lorasrtan-hydrochlorothiazide if remaining elevated - Reports being told his BP was borderline when seen by PCP this week, outside of stressful inpatient admission process 08/07 -Blood pressure has been consistently high since admission, up to 158/111 today, with heart rate 101. Anxiety may be playing a role, but his blood pressure was also high during his last hospitalization in May, even during times when anxiety was lower. Will increase Hctz/Losartan potassium to 50/12.5mg, and continue to monitor blood pressure. He will need follow-up with his PCP after discharge. 08/08 - Case discussed with [facility] hospitalist, Dr. Traore. He recommended continuing higher dose of Hyzaar, starting Coreg 6.25 mg twice daily, and low- salt diet, with full consult if blood pressure not improved in the next couple of days. 08/09 - BP improved this AM with Coreg. Continue (5) Diabetes mellitus type 2 in obese: 08/06 - Managed on an outpatient basis with metformin as monotherapy. Continue medication at this time. - Met with senior it engineer during May admission, can request consultation if patient desires 08/07 -Continue daily blood glucose monitoring (158 today, during last hospitalization was in the 100-200 range). Inventory Assets Strengths: now willing for treatment, support of family Needs: outpatient psychiatric providers, development of healthy and effective coping strategies Risk Factors Assessment Male: Yes : Yes Do You Have Access To A Gun?: No (guns are kept in a safe, only has combination) Health Problems: Yes Mental Health Diagnoses: Yes Substance Use Disorders: No Previous Attempt: No Family History of Suicide: No Previous Psychiatric Hospitalization: Yes Hopelessness: No Smoker: No Protective Factors Assessment Restorationism Beliefs: No : Yes Responsible for Young Children: No Employed: No (Fired on Thursday - [employer]) Stable Relationships: Yes Supportive Family: Yes Interval History Identifying Information RD GIANG is a 53-year-old M who currently lives in [place] with his , has a history of depression and anxiety, and was admitted on 08/06/18 15:36 on a 201 voluntary commitment for worsening depression, increased panic attacks, and suicidal ideation with thoughts to hang himself. Chief Complaint "I'm good. ". Review of Systems Sleep Information Total Hours of Sleep: 7 Sleep Comments: pt on q-15 minute checks Meal Information Percent Meal Consumed - Breakfast: 90 Percent Meal Consumed - Lunch: 100 Percent Meal Consumed - Dinner: 100 Subjective Subjective Patient was seen & assessed and interval progress reviewed with Treatment Team. The patient says that as opposed to yesterday, he did not have anxiety this AM and wonders if part of it was better BP. He says that he feels better, calm and back to his "joking" self. He feels that his mood is "good", and is anxious to complete the medication cross over. He denies any discontinuation symptoms from paxil taper. He denies SI. Nursing staff says that he has worked on his safety plan, and family meeting with accomplished this weekend. Physical Exam Psychiatric Orientation: alert and cooperative Apperance: + disheveled Eye Contact: good eye contact Motor Behavior: steady gait and station and no abnormal motor movements Speech: normal rate/rhythm/volume of speech Affect: euthymic affect Mood: no depressed mood and no anxious mood Thought Process: goal directed thought process Thought Content: reality based without delusions Suicidal Thoughts: denies suicidal thoughts Homicidal Thoughts: denies homicidal thoughts Hallucinations: no auditory hallucinations and no visual hallucinations Cognition: recent memory grossly intact, remote memory grossly intact, attention grossly intact and language grossly intact Estimated Intelligence: average estimated intelligence Insight: + fair insight Judgement: + fair judgement Vital Signs (Past 24 Hours) Last Vital Signs Temp 36.3 C L 08/09/18 06:52 Pulse 83 08/09/18 08:56 Resp 16 08/09/18 06:52 BP 116/75 08/09/18 08:56 Pulse Ox 97 08/06/18 15:51 Results & Data Laboratory Results Laboratory Results - last 24 hr 08/09/18 08:08 POC Glucose 125 H Current Inpatient Medications Current Inpatient Medications: Current Inpatient Medications Acetaminophen (Tylenol) 650 mg PO Q4H PRN PRN Reason: Headache or Minor Fever Stop: 09/05/18 15:35 Last Admin: 08/07/18 17:27 Dose: 650 mg Documented by: Al Hydrox/Mg Hydrox/Simethicone (Maalox) 30 ml PO Q4H PRN PRN Reason: GI Upset Stop: 09/05/18 15:35 Aspirin (Ecotrin Ectab) 81 mg PO HS RUTHIE Stop: 09/05/18 21:59 Last Admin: 08/08/18 21:12 Dose: 81 mg Documented by: Bismuth Subsalicylate (Kaopectate) 15 ml PO PRN PRN PRN Reason: Loose Stool Stop: 09/05/18 15:35 Carvedilol (Coreg) 6.25 mg PO BID RUTHIE Stop: 09/07/18 09:59 Last Admin: 08/09/18 08:11 Dose: 6.25 mg Documented by: HCTZ/Losartan Potassium (Hyzaar 50/12.5mg) 1 tab PO HS RUTHIE Stop: 09/06/18 21:59 Last Admin: 08/08/18 21:12 Dose: 1 tab Documented by: Hydroxyzine HCl (Vistaril) 25 mg PO Q4H PRN PRN Reason: Anxiety Stop: 09/05/18 15:35 Last Admin: 08/08/18 08:41 Dose: 25 mg Documented by: Hydroxyzine HCl (Vistaril) 50 mg PO HSZ PRN PRN Reason: Insomnia Stop: 09/05/18 15:35 Magnesium Hydroxide (Milk Of Magnesia) 30 ml PO DAILY PRN PRN Reason: Heartburn Stop: 09/05/18 15:35 Metformin HCl (Glucophage) 1,000 mg PO BIDM RUTHIE Stop: 09/05/18 17:44 Last Admin: 08/09/18 08:11 Dose: 1,000 mg Documented by: Paroxetine HCl (Paxil) 10 mg PO HS [facility] Stop: 09/07/18 21:59 Last Admin: 08/08/18 21:12 Dose: 10 mg Documented by: Sertraline HCl (Zoloft) 100 mg PO HS [facility] Stop: 09/07/18 21:59 Last Admin: 08/08/18 21:12 Dose: 100 mg Documented by: Sodium Chloride ([place] Nasal) 1 - 2 sprays NA PRN PRN PRN Reason: Nasal Dryness/Congestion Stop: 09/05/18 15:35 Post Discharge Appointments Primary Care Physician Name Of Family Doctor: Doreen [facility] Date of Appointment with PCP: 08/11/18 Time of Appointment with PCP: 11:05 a.m. Provider Appointment Comment: [place] [id number] Therapist Name of Therapist: Psy. Grover Nguyen Therapist's Date of Therapist Appointment: 08/12/18 Time of Therapist Appointment: 3:00 p.m. Therapy Appointment Comment: [place] [id number] Shingles Roofer Name of Shingles Roofer: None Contact Information Discharge Discharge Address: [address] [place] [address], [place] [address] CPT Code CPT Code 12643 (1) Depression Depression Type: unspecified Qualified Code(s): F32.9 - Major depressive disorder, single episode, unspecified
[2018-08-09] MEDS: ASPIRIN 81 MG ECTAB PO SCH (21:12)
[2018-08-09] MEDS: LOSARTAN/HCTZ 50/12.5MG TAB PO SCH (21:12)
[2018-08-09] MEDS ORDERED: SERTRALINE HCL 50 MG TABLET PO SCH (22:00)
[2018-08-10] MEDS: METFORMIN HCL 500 MG TAB PO SCH (08:01)
[2018-08-10] MEDS: CARVEDILOL 6.25 MG TAB PO SCH (08:01)
--- NOTE | 2018-08-10 09:04 | Discharge Summary ---
Date of Service August 10, 2018 History of Present Illness Suzy Bustillos is a 53-year-old male voluntarily admitted for inpatient psychiatric treatment. Pt was last admitted to our unit in 05/2018 for similar symptoms, thoughts at that time to shoot himself. Pt reported worsening anxiety in the last several weeks and frequent unprovoked panic attacks. He reports having a panic attack at work, leaving the job, and then being told he was fired from this particular jobsite. 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 Patient reports increased anxiety in the mornings, but is unsure that this is directly related to work. Patient reports panic attacks occurring a couple days a week. During these he admits to chest tightness, need to rock back and forth, shortness of breath, and a feeling of "I need to get out of this". It is within the context of these panic attacks that the patient experiences suicidal ideation. He admits most recently, for the past few days, to intrusive thoughts to hang himself. Patient denies taking steps to acquire items to complete this, but does admit that he has located a spot "where I could do it." Patient denies intent to follow through with this ideation, but reports that it is very distressing for him to experience. Due to increased anxiety patient states he has not had a noticeable weight losspotentially 30 pounds in the last 3 months. The patient reports he initially began psychiatric treatment in 1993 and "I have been on Paxil ever since." At that time the patient reported financial stressors as a primary cause for his depressive and anxiety symptoms. When discussing patient's mood, the patient states that he has "more bad days than good days" and has been struggling to maintain a mood he considers to be normal for him. The patient reports decreased energy, anhedonia, decreased motivation to complete tasks around the house, and decreased appetite. He denies any significant changes in his sleep. He denies any feelings of hopelessness. Patient reports that seasonal affective disorder has been discussed with him, but he has been unwilling to make medication adjustments to target his low mood in the winter. He does admit that all of his inpatient psychiatric admissions have been during the winter months. He does state that he is at least started a "vitamin D tablet" to help with his low mood. Patient denies any symptoms sugge stive of manic or hypomanic episodes. Patient states he has a supportive family and is not sure the cause of these ongoing mood and anxiety symptoms. He admits that he is willing at this time to consider medication changes, outpatient psychiatric prescriber, and outpatient therapy options which he has previously been resistant to. Patient states "I tried to do it on my own after May, but clearly it did not work out." Patient denies self-harm behaviors, homicidal ideation, auditory or visual hallucinations, paranoia, john or hypomania, other symptoms more suggestive of a bipolar disorder, OCD, PTSD, eating disorder, and other specific psychiatric symptoms. Physical Exam Psychiatric Orientation: alert and cooperative Apperance: appropriately dressed and + disheveled Eye Contact: good eye contact Motor Behavior: steady gait and station and no abnormal motor movements Speech: normal rate/rhythm/volume of speech Affect: euthymic affect Mood: + anxious mood; no depressed mood Thought Process: goal directed thought process Thought Content: reality based without delusions Suicidal Thoughts: denies suicidal thoughts Homicidal Thoughts: denies homicidal thoughts Hallucinations: no auditory hallucinations and no visual hallucinations Cognition: recent memory grossly intact, remote memory grossly intact, attention grossly intact and language grossly intact Estimated Intelligence: average estimated intelligence Insight: + fair insight Judgement: + fair judgement Vital Signs (Past 24 Hours) Last Vital Signs Temp 36.6 C 08/10/18 06:42 Pulse 87 08/10/18 06:43 Resp 18 08/10/18 06:42 BP 152/97 H 08/10/18 06:43 Pulse Ox 97 08/06/18 15:51 Principal Diagnosis Major depressive disorder, recurrent, severe, without psychotic features. Anxiety Psychiatric Data The patient has been on her unit for 4 days. He was admitted initially with severe depression and anxiety that was interfering with his ability to function. He was admitted voluntarily. For complete admission information I refer you to the attached history and physical. During his stay, medications were changed. He was taken off Paxil which he been on for decades and titrated up on Zoloft 2 50 mg daily. He tolerated this without side effect. His mood progressively improved, and was without suicidal ideation by the end of his stay. He noted a pattern where his anxiety is always worst in the morning and many times associated with elevated BP. This was better managed by day of discharge with fewer symptoms of anxiety in the morning. Medical problems were managed including diabetes, obesity and hypertension. The patient's Hyzaar was increased by 50% and Coreg 6.25 mg twice daily was added for hypertension. These will continue to need medical follow-up post discharge. Family meeting was held with the patient's for support. The patient is being referred for medication management and therapy post discharge. He will continue with his PCP, Dr. Doan, for medical management. Risk factors were mediated through the use of medications, group and individual counseling, family meeting, exploration of healthy coping strategies, safety planning and aftercare planning. Day of Discharge Assessment Today the patient is requesting discharge. He is improved over admission. He denies depression or suicidal ideation. He has minimal anxiety today. Today he is casually dressed, somewhat disheveled with several days worth of beer growth. Gait and station are within normal limits. Eye contact is good. Affect is smiling. Speech is of normal rate volume and tone. Thoughts are organized, goal-directed, and without evidence of thought disorder. Recent and remote memory are intact per conversation. Intelligence is estimated to be average. Insight and judgment are improved over admission. Transition of Care Transition Of Care Record: was reviewed with the patient Advance Directives Advance Directives Information Provided: Yes Advance Directives: No Mental Health Advance Directive: No Advance Directives on File: No Living Will: No Power of Home Based Assistant: No Advance Directives Reason:: Declines as Mental Health Visit. 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 Relationships: Yes Supportive Family: Yes Tobacco Cessation at Discharge Tobacco Cessation Medication Prescribed at Discharge: Not Applicable/Non-Smoker Total Time Total Time Spent: Greater Than 30 Minutes Total Time Includes: Examination of the patient, Discharge Planning, Medication Reconciliation and Communication with other providers Discharge Data Lab Results 08/06/18 08/06/18 08/06/18 11:45 11:45 11:48 WBC 9.16 RBC 5.37 Hgb 16.1 Hct 45.3 MCV 84.4 MCH 30.0 MCHC 35.5 RDW Std Deviation 40.4 RDW Coeff of Conchita 13.3 Plt Count 242 MPV 10.2 Immature Gran % (Auto) 0.2 Neut % (Auto) 74.5 Lymph % (Auto) 18.8 Nobles % (Auto) 5.8 Eos % (Auto) 0.4 Baso % (Auto) 0.3 Immature Gran # (Auto) 0.02 Neut # (Auto) 6.82 H Lymph # (Auto) 1.72 Nobles # (Auto) 0.53 Eos # (Auto) 0.04 Baso # (Auto) 0.03 Sodium Potassium Chloride Carbon Dioxide Anion Gap BUN Creatinine Est Cr Clr Drug Dosing Est GFR ( Amer) Est GFR (Non-Af Amer) BUN/Creatinine Ratio Glucose POC Glucose Calcium Total Bilirubin AST ALT Alkaline Phosphatase Total Protein Albumin Globulin Albumin/Globulin Ratio TSH Urine Color Yellow Urine Appearance Clear Urine pH 6.0 Ur Specific [place] <= 1.005 Urine Protein Negative Urine Glucose (UA) Negative Urine Ketones Negative Urine Blood Negative Urine Nitrite Negative Urine Bilirubin Negative Urine Urobilinogen Negative Ur Leukocyte Esterase Negative Salicylates Urine Opiates Screen Neg Ur Methadone, Qual Neg Acetaminophen Urine Barbiturates Neg Ur Phencyclidine (PCP) Neg U Amphetamin/Meth Scrn Neg MDMA (Ecstasy) Screen Neg U Benzodiazepines Scrn Neg Ur Cocaine Metabolite Neg U Marijuana (THC) Screen Neg Ethyl Alcohol mg/dL 08/06/18 08/06/18 08/06/18 11:48 11:48 11:48 WBC RBC Hgb Hct MCV MCH MCHC RDW Std Deviation RDW Coeff of Conchita Plt Count MPV Immature Gran % (Auto) Neut % (Auto) Lymph % (Auto) Nobles % (Auto) Eos % (Auto) Baso % (Auto) Immature Gran # (Auto) Neut # (Auto) Lymph # (Auto) Nobles # (Auto) Eos # (Auto) Baso # (Auto) Sodium 138 Potassium 3.7 Chloride 103 Carbon Dioxide 29 Anion Gap 6.0 BUN 9 Creatinine 1.00 Est Cr Clr Drug Dosing 109.5 Est GFR ( Amer) 97.8 Est GFR (Non-Af Amer) 84.4 BUN/Creatinine Ratio 9.4 L Glucose 133 H POC Glucose Calcium 9.2 Total Bilirubin 0.7 AST 27 ALT 37 Alkaline Phosphatase 73 Total Protein 7.6 Albumin 3.8 Globulin 3.8 Albumin/Globulin Ratio 1.0 TSH 0.926 Urine Color Urine Appearance Urine pH Ur Specific [place] Urine Protein Urine Glucose (UA) Urine Ketones Urine Blood Urine Nitrite Urine Bilirubin Urine Urobilinogen Ur Leukocyte Esterase Salicylates < 1.7 L Urine Opiates Screen Ur Methadone, Qual Acetaminophen < 2 L Urine Barbiturates Ur Phencyclidine (PCP) U Amphetamin/Meth Scrn MDMA (Ecstasy) Screen U Benzodiazepines Scrn Ur Cocaine Metabolite U Marijuana (THC) Screen Ethyl Alcohol mg/dL < 3.0 08/07/18 08/08/18 08/09/18 08:18 08:13 08:08 WBC RBC Hgb Hct MCV MCH MCHC RDW Std Deviation RDW Coeff of Conchita Plt Count MPV Immature Gran % (Auto) Neut % (Auto) Lymph % (Auto) Nobles % (Auto) Eos % (Auto) Baso % (Auto) Immature Gran # (Auto) Neut # (Auto) Lymph # (Auto) Nobles # (Auto) Eos # (Auto) Baso # (Auto) Sodium Potassium Chloride Carbon Dioxide Anion Gap BUN Creatinine Est Cr Clr Drug Dosing Est GFR ( Amer) Est GFR (Non-Af Amer) BUN/Creatinine Ratio Glucose POC Glucose 158 H 141 H 125 H Calcium Total Bilirubin AST ALT Alkaline Phosphatase Total Protein Albumin Globulin Albumin/Globulin Ratio TSH Urine Color Urine Appearance Urine pH Ur Specific [place] Urine Protein Urine Glucose (UA) Urine Ketones Urine Blood Urine Nitrite Urine Bilirubin Urine Urobilinogen Ur Leukocyte Esterase Salicylates Urine Opiates Screen Ur Methadone, Qual Acetaminophen Urine Barbiturates Ur Phencyclidine (PCP) U Amphetamin/Meth Scrn MDMA (Ecstasy) Screen U Benzodiazepines Scrn Ur Cocaine Metabolite U Marijuana (THC) Screen Ethyl Alcohol mg/dL 08/10/18 07:59 WBC RBC Hgb Hct MCV MCH MCHC RDW Std Deviation RDW Coeff of Conchita Plt Count MPV Immature Gran % (Auto) Neut % (Auto) Lymph % (Auto) Nobles % (Auto) Eos % (Auto) Baso % (Auto) Immature Gran # (Auto) Neut # (Auto) Lymph # (Auto) Nobles # (Auto) Eos # (Auto) Baso # (Auto) Sodium Potassium Chloride Carbon Dioxide Anion Gap BUN Creatinine Est Cr Clr Drug Dosing Est GFR ( Amer) Est GFR (Non-Af Amer) BUN/Creatinine Ratio Glucose POC Glucose 114 H Calcium Total Bilirubin AST ALT Alkaline Phosphatase Total Protein Albumin Globulin Albumin/Globulin Ratio TSH Urine Color Urine Appearance Urine pH Ur Specific [place] Urine Protein Urine Glucose (UA) Urine Ketones Urine Blood Urine Nitrite Urine Bilirubin Urine Urobilinogen Ur Leukocyte Esterase Salicylates Urine Opiates Screen Ur Methadone, Qual Acetaminophen Urine Barbiturates Ur Phencyclidine (PCP) U Amphetamin/Meth Scrn MDMA (Ecstasy) Screen U Benzodiazepines Scrn Ur Cocaine Metabolite U Marijuana (THC) Screen Ethyl Alcohol mg/dL Hospital Course (1) Suicidal ideation: 08/06 - Admitted to a locked inpatient behavioral health unit, on q15 minute safety checks - Encourage medication initiation/adjustments as indicated - Encourage participation in group and recreational therapies - Gather collateral information from outpatient providers - Suggest family meeting to involve outpatient supports in safety planning - Arrange appropriate aftercare 08/07 - Feels safe here, but cannot contract for safety outside the hospital. 08/08 -Continues to have suicidal thoughts, but less frequent (this morning when he awoke feeling highly anxious). (2) Depression: 08/06 - Will plan to cross-taper from paroxetine to sertraline - will given 20mg paroxetine and 25mg of sertraline tonight, adjust as tolerated - Involve or other supports in family meeting to discuss patinet's needs moving forward - Highly recommending outpatient psychiatric prescriber and therapy as aftercare plan, patient willing on this admission 08/07 - Continue cross taper - ? discontinuation symptoms, feels "foggy" this morning, so will continue 20 mg for now and continue slow taper off it. Increase sertraline to 50 mg for tonight. 08/08 - Decrease paroxetine to 10 mg at bedtime tonight, and increase sertraline to 100 mg at bedtime. 08/09 - DC Paxil - Increase Zoloft to 150 mg (3) Anxiety: 08/06 - As above - Encouraged use of hydroxyzine prn for acute anxiety - Patient not desiring lorazepam at this time, but may be beneficial for frequent panic symptoms if not responding to hydroxyzine - Assist patient with development of healthy and effective coping strategies (4) HTN (hypertension): 08/06 - Continue home antihypertensive agent and closely monitor blood pressure, patient reports compliance - Hypertension was ongoing during May admission and as well as the majority of recent visit - Consider increasing to full tablet of lorasrtan-hydrochlorothiazide if remaining elevated - Reports being told his BP was borderline when seen by PCP this week, outside of stressful inpatient admission process 08/07 -Blood pressure has been consistently high since admission, up to 158/111 today, with heart rate 101. Anxiety may be playing a role, but his blood pressure was also high during his last hospitalization in May, even during times when anxiety was lower. Will increase Hctz/Losartan potassium to 50/12.5mg, and continue to monitor blood pressure. He will need follow-up with his PCP after discharge. 08/08 - Case discussed with [facility] hospitalist, Dr. Traore. He recommended continuing higher dose of Hyzaar, starting Coreg 6.25 mg twice daily, and low- salt diet, with full consult if blood pressure not improved in the next couple of days. 08/09 - BP improved this AM with Coreg. Continue (5) Diabetes mellitus type 2 in obese: 08/06 - Managed on an outpatient basis with metformin as monotherapy. Continue medication at this time. - Met with adaptive physical educator during May admission, can request consultation if patient desires 08/07 -Continue daily blood glucose monitoring (158 today, during last hospitalization was in the 100-200 range). Post Discharge Appointments Primary Care Physician Name Of Family Doctor: Doreen Tapia - Dr. Doan Primary Care Date of Appointment with PCP: 08/11/18 Time of Appointment with PCP: 11:05 a.m. Provider Appointment Comment: [address] [place] [id number] Primary Care Release of Information: Obtained, Reviewed and Signed Therapist Name of Therapist: Doreen Tapia - Psy. Grover Herrera Therapist's Date of Therapist Appointment: 08/12/18 Time of Therapist Appointment: 3:00 p.m. Therapy Appointment Comment: [address] [place] [id number] Therapist Release of Information: Obtained, Reviewed and Signed Learning Support Specialist Name of Learning Support Specialist: None Smoking Cessation Counseling Tobacco Cessation Medication Prescribed at Discharge: Not Applicable/Non-Smoker Contact Information Discharge Discharge [address]: [address] [place] [id number] Discharge Plan Discharge Items Patient Disposition: Home - Self-Care Reason For Visit: SUICIDAL IDEATION, DEPRESSION Discharge Diagnosis: Depression Discharge Goals: Decrease discomfort, Improve disease control and Improve function Activity: Resume your previous activity Non-emergency contact: Primary Care Provider, Psychiatrist and Therapist Call non-emergency contact if: you have any medication questions and your symptoms worsen Follow-up/Referrals: Koffi Doan MD [Primary Care Provider] - Diet: Carb Consistent or DM2 and Low Sodium (2gm) Addtl Provider Instructions: SPECIAL CARE INSTRUCTIONS: 1. Follow through with your scheduled aftercare appointments. If unable to keep an appointment, please call to reschedule. 2. Take your medication only as prescribed. Medication should not be changed or stopped without the approval of your doctor. In the event of worsening symptoms or concerns about side effects, contact your doctor immediately. 3. Utilize new healthy coping skills, anger management skills, and stress management skills learned during your hospitalization. Journal feelings and process them with a support person. Identify stressors or situations that may result in relapse, deterioration or inappropriate behaviors and develop a plan to deal with those issues. 4. If your coping skills are ineffective and you are in crisis, contact your outpatient providers for direction. If unable to reach your providers, please call the CAN HELP LINE AT or go to the closest Emergency Room. 5. Avoid alcohol and un-prescribed drugs. 6. You have been provided with the Mental Health Advance Directives Pamphlet for your review. AFTERCARE APPOINTMENTS: * Please call your insurance company prior to your scheduled appointment to confirm your aftercare providers are covered. Take your insurance information to your appointments. WHO TO CALL AND WHEN: Medical Emergencies: For questions or emergencies related to your hospital stay, please contact the Inpatient Behavioral Health Unit at [phone]. A associate director of development is on-call 01/12 for the Behavioral Health Unit for emergencies At any time you feel your situation is an emergency, you may also call 911 immediately. Your Doctors Instructions noted above were prepared by provider SHIVA Wiley. Prescriptions: New carvedilol 6.25 mg Tablet 6.25 mg PO BID Qty: 60 RF: 0 sertraline 100 mg tablet 150 mg PO HS Qty: 45 RF: 0 Continued metformin 1,000 mg tablet 1,000 mg PO BID RF: 0 aspirin [Aspirin Low Dose] 81 mg Tablet,Delayed Release (Dr/Ec) 81 mg PO HS RF: 0 Changed losartan-hydrochlorothiazide 50-12.5 mg tablet 1 tab PO HS Qty: 0 RF: 0 Discontinued paroxetine HCl 40 mg Tablet 40 mg PO HS Qty: 30 RF: 0 Stand-Alone Forms: [facility]/Other Patient Handouts: Hypertension Control, Stress Manage Healthy Lifestyle, Stress Relief Activities, Stress Relief Relaxation Discharge Orders: Discharge Order (Routine); Ordered 08/10/18 Ordered By: Riri Barkley Admission Data Admit Date/Time: 08/06/18 15:36 Attending Provider: Tayler Pisano Admit Provider: Raymon Leroy Primary Care Provider: Koffi Doan Service: Psychiatry Other Interventions: PSY Interdisciplinary Discharge Planning Last Done: 08/10/18 08:51 Pending Studies at Discharge: No
== END 2018-08-10 14:32 | disposition home or self-care (01) | DRG 885 ==
LOC: ED 11:01 → 3S 15:36 → SUATTDRO 15:36 → 3S 15:51